=== PATIENT | female | born 1940 | race Caucasian/White ===

== ENCOUNTER → 2018-09-27 08:00 | Outpatient (CLI) | payer MEDICARE, OTHER, SELFPAY | PROVIDERS: Referring Provider Nurse Practitioner; Visit Provider Family Medicine | DX: I70.238 Atherosclerosis of native arteries of right leg with ulceration of other part of lower leg (principal); L97.811 Non-pressure chronic ulcer of other part of right lower leg limited to breakdown of skin; S41.102A Unspecified open wound of left upper arm, initial encounter; R60.0 Localized edema; M79.661 Pain in right lower leg; E11.9 Type 2 diabetes mellitus without complications | CPT/HCPCS: 11042; 11045; 36415; 80053; 83036; 85025; 85651; 86140; 87070; 87077; 87147; 87186; 87205; 99203; 99213 ==

== ENCOUNTER → 2018-09-27 09:45 | Outpatient (CLI) | payer MEDICARE, SELFPAY ==
[2018-09-27 10:38] LABS: Add Manual Diff / Slide Review NO; Basophils Absolute Auto 100 /uL (0-100); Basophils Percent Auto 0.7 % (0-2); Eosinophils Absolute Auto 400 /uL (0-450); Eosinophils Percent Auto 3.8 % (2-4); Hematocrit 34.6 % (36-46); Hemoglobin 11.2 g/dL (12.0-16.0); Lymphocytes Absolute Auto 1900 /uL (1100-4500); Lymphocytes Percent Auto 20.4 % (25-40); Mean Corpuscular HGB Conc 32.5 % (30-36); Mean Corpuscular Hemoglobin 26.8 PG (26-34); Mean Corpuscular Volume 82.5 fL (80-100); Monocytes Absolute Auto 800 /uL (0-900); Monocytes Percent Auto 8.1 % (3-14); Neutrophils Absolute Auto 6200 /uL (1500-7000); Platelet Count 330 X10^3/uL (150-400); Red Blood Cell Count 4.19 X10^6/uL (4.0-5.2); Red Cell Distribution Width 20.3 % (11.6-14.8); White Blood Cell Count 9.3 X10^3/uL (4.5-11.0)
[2018-09-27 10:41] LABS: Hemoglobin A1C% w Est Avg Glu 6.5 % (4.0-6.0)
[2018-09-27 10:46] LABS: Alanine Aminotransferase 8 IU/L (9-52); Albumin 4.1 g/dL (3.5-5.0); Alkaline Phosphatase 78 U/L (38-126); Aspartate Aminotransferase 22 IU/L (14-36); BUN Creatinine Ratio 34.4 (6-22); Bilirubin Total 0.5 mg/dL (0.2-1.3); Blood Urea Nitrogen 31 mg/dL (7-17); C-Reactive Protein Quant 3.6 mg/dL (<1.0); Calcium 10.3 mg/dL (8.4-10.2); Carbon Dioxide 28 mmol/L (22-32); Chloride 104 mmol/L (98-107); Estimated Glomerular Filt Rate > 60.0 mL/min (>60); Globulin 4.2 g/dL (1.7-4.1); Glucose 153 mg/dL (80-110); HEMOLYSIS < 15 (0-50); Potassium 4.2 mmol/L (3.4-5.1); Sodium 142 mmol/L (137-145); Total Protein 8.3 g/dL (6.3-8.2)
[2018-09-27 11:02] LABS: Erythrocyte Sedimentation Rate 79 MM/HR (0-20)
[2018-09-27 11:05] LABS: Anisocytosis 1+
== END ==
PROVIDERS: PCP Nurse Practitioner; Visit Provider Family Medicine
DX: L08.9 Local infection of the skin and subcutaneous tissue, unspecified (principal)
CPT/HCPCS: 36415; 80053; 83036; 85025; 85651; 86140

== ENCOUNTER → 2018-10-04 10:59 | Outpatient (CLI) | payer MEDICARE, OTHER, SELFPAY | PROVIDERS: PCP Nurse Practitioner; Visit Provider Family Medicine | DX: I73.9 Peripheral vascular disease, unspecified (principal); L97.811 Non-pressure chronic ulcer of other part of right lower leg limited to breakdown of skin; E11.9 Type 2 diabetes mellitus without complications | CPT/HCPCS: 11042 ==

== ENCOUNTER → 2018-10-10 13:09 | Outpatient (CLI) | payer MEDICARE, OTHER, SELFPAY | PROVIDERS: PCP Nurse Practitioner; Visit Provider Family Medicine | DX: I73.9 Peripheral vascular disease, unspecified (principal); I87.2 Venous insufficiency (chronic) (peripheral); L97.811 Non-pressure chronic ulcer of other part of right lower leg limited to breakdown of skin; M79.661 Pain in right lower leg; E11.9 Type 2 diabetes mellitus without complications | CPT/HCPCS: 97597 ==

== ENCOUNTER → 2018-10-17 12:57 | Outpatient (CLI) | payer MEDICARE, OTHER, SELFPAY ==
--- NOTE | 2018-10-17 | DI.US.S_ITS ---
PROCEDURE: US ARTERIAL DUPLEX LE RT INDICATIONS: PERIPHERAL VASCULAR DISEASE TECHNIQUE: Color and pulse Doppler interrogation was performed of the right lower extremity arterial system, with image documentation. COMPARISON: None. FINDINGS: Common femoral artery: 291 cm/sec, with monophasic flow. Deep femoral artery: 206 cm/sec, with monophasic flow. Proximal superficial femoral artery: 495 cm/sec, with monophasic flow. Mid superficial femoral artery: 90 cm/sec, with monophasic flow. Distal superficial femoral artery: 39 cm/sec, with monophasic flow. Popliteal artery: 64 cm/sec, with monophasic flow. Posterior tibial artery: 60 cm/sec, with monophasic flow. Anterior tibial artery/dorsalis pedis: 33 cm/sec, with monophasic flow. Vergara-scale imaging description: Dense atheromatous plaque is present throughout the right lower extremity arteries. IMPRESSION: 1. Monophasic waveforms throughout the right lower extremity suggesting inflow stenosis of the iliac artery. CTA with lower extremity runoff recommended to further characterize findings and evaluate for possible therapeutic interventions. 2. Markedly increased velocity within the proximal right superficial femoral artery suggesting a hemodynamically significant stenosis at the origin of the artery. These lesions may be amenable to percutaneous, transluminal angioplasty. If the patient would like to discuss possible therapeutic interventions, consider interventional radiology consultation and [facility]. Dictated by: Claudia Simpson M.D. on 10/17/2018 at 16:43 Approved by: Claudia Simpson M.D. on 10/17/2018 at 16:49
== END ==
PROVIDERS: PCP Nurse Practitioner; Visit Provider Family Medicine
DX: I73.9 Peripheral vascular disease, unspecified (principal)
CPT/HCPCS: 93926; 99213

== ENCOUNTER → 2018-10-17 14:54 | Outpatient (CLI) | payer MEDICARE, OTHER, SELFPAY | PROVIDERS: PCP Nurse Practitioner; Visit Provider Family Medicine | DX: I87.2 Venous insufficiency (chronic) (peripheral) (principal); E11.622 Type 2 diabetes mellitus with other skin ulcer; I73.9 Peripheral vascular disease, unspecified; L97.811 Non-pressure chronic ulcer of other part of right lower leg limited to breakdown of skin | CPT/HCPCS: 99213 ==

== ENCOUNTER → 2018-10-22 17:04 | Outpatient (CLI) | payer MEDICARE, OTHER, SELFPAY ==
[2018-10-22 18:18] LABS: BUN Creatinine Ratio 21.4 (6-22); Blood Urea Nitrogen 30 mg/dL (7-17); Estimated Glomerular Filt Rate 36.6 mL/min (>60)
== END ==
PROVIDERS: PCP Nurse Practitioner; Visit Provider Family Medicine
DX: I73.9 Peripheral vascular disease, unspecified (principal); L97.212 Non-pressure chronic ulcer of right calf with fat layer exposed; I87.2 Venous insufficiency (chronic) (peripheral); E11.622 Type 2 diabetes mellitus with other skin ulcer
CPT/HCPCS: 36415; 82565; 84520

== ENCOUNTER → 2018-10-23 13:16 | Outpatient (CLI) | payer MEDICARE, OTHER, SELFPAY ==
--- NOTE | 2018-10-23 13:56 | DI.CT.S_ITS ---
PROCEDURE: CT ANGIO ABDOMEN/FEMORAL INDICATIONS: abnoral arterial duplex u/s TECHNIQUE: After the administration of intravenous contrast, 2.5 mm thick sections acquired from the diaphragm to the symphysis. 10 mm maximum-intensity projection (MIP) reformats were then acquired. For radiation dose reduction, the following was used: automated exposure control. COMPARISON: [facility], US, US ARTERIAL DUPLEX LE RT, 10/17/2018, 13:50. FINDINGS: Image quality: Excellent. Aorta: Dense atheromatous calcifications are present throughout the abdominal aorta. No aneurysmal dilatation. Mesenteric arteries: A focal high-grade stenosis is present at the origin of the celiac axis. A high-grade stenosis is present at the origin of the SMA. High-grade stenoses are present bilaterally at the origins of the renal arteries. There is an accessory inferior right renal artery which appears patent. The EVANGELIST is patent. Right pelvic arteries: A moderate grade stenosis is present at the origin of the right common iliac artery. Atheromatous calcification results in mild to moderate stenosis more distally throughout the common iliac. Diffuse atheromatous calcification moderately narrows the course of the right external iliac artery. The right internal iliac artery is patent. Moderate stenosis is present throughout the right common femoral artery. Dense atheromatous calcification throughout the right superficial femoral artery results in multifocal moderate to high grade stenoses throughout. No definite SFA occlusion visualized. The right popliteal artery is patent with diffuse mural irregularity. The right anterior tibial artery and posterior tibial artery are patent to the level of the foot. The right peroneal artery is diminutive and midcalf. Left pelvic arteries: A focal mild to moderate stenosis is present at the origin of the left common iliac artery with poststenotic dilatation. No other hemodynamically significant stenosis of the left common iliac artery. The left internal iliac artery is patent. Dense atheromatous calcification is present throughout the left external iliac artery and left common femoral artery without hemodynamically significant stenosis. The left superficial femoral artery is widely patent. Scattered atheromatous calcifications result in mild to moderate focal stenoses. No high-grade stenosis present. The left popliteal artery is widely patent. The left anterior tibial, posterior tibial, and peroneal arteries are patent to the level of the foot. Extravascular soft tissues: Lung bases are clear. Heart size is normal. Liver is normal in size and enhancement. Gallbladder is surgically absent. Biliary system is non dilated. The uncinate process and head of the pancreas are grossly unremarkable. 2 complex, cystic lesions are present within the body and tail of the pancreas. The cystic lesion within the body of the pancreas measures 3.4 x 3.2 cm and the lesion within the tail the pancreas measures 9.8 x 11.1 cm in the axial plane. Soft tissue is visualized within these cystic lesions. The pancreatic duct is not distinctly visualized. The tail of the pancreas extends lateral to the larger of the 2 cystic lesions. Spleen is normal in size and enhancement. There are bilateral low-density adrenal masses, larger on the left than on the right suggesting the presence of bilateral adrenal adenomas. Kidneys are normal in size and enhancement, without hydronephrosis. Non opacified bowel loops are normal in wall thickness and caliber. There are scattered sigmoid diverticula. No evidence for diverticulitis. No free fluid or air. No retroperitoneal or mesenteric adenopathy. No ventral hernias. No suspicious bony lesions. No vertebral body compression fractures. Right hip arthroplasty is grossly intact. There appears to be a peripherally calcified right joint effusion which is incompletely characterized on this limited view of the hip. Right knee arthroplasty is grossly intact. IMPRESSION: 1. 2 complex, cystic mass lesions within the pancreas suspicious for mucinous tumors. Dedicated pancreatic mass protocol CT or pancreatic mass protocol MRI is recommended. Additionally, gastroenterology consultation recommended. 2. Diverticulosis. No acute diverticulitis. 3. Probable right hip effusion which is peripherally calcified suggesting giant cell foreign body reaction. Dedicated CT or MRI this region could be used to further characterize this finding. Orthopedic consultation recommended. 4. Moderate stenoses throughout the right iliac and common femoral arteries which likely represent inflow stenosis visualized on the arterial duplex dated 10/17/18. The stenoses are likely amenable to percutaneous angioplasty and possible stenting. 5. Diffuse moderate to high-grade stenoses throughout the right superficial femoral artery likely amenable to percutaneous angioplasty. 6. 2 vessel right lower extremity runoff. 7. Mild to moderate stenosis at the origin of left common iliac artery. 8. Diffuse atheromatous calcifications throughout the left lower extremity arteries without focal hemodynamically significant stenosis. Three-vessel left lower extremity runoff. Dictated by: Claudia Simpson M.D. on 10/23/2018 at 17:04 Approved by: Claudia Simpson M.D. on 10/23/2018 at 17:24
== END ==
PROVIDERS: PCP Nurse Practitioner; Visit Provider Family Medicine
DX: I70.203 Unspecified atherosclerosis of native arteries of extremities, bilateral legs (principal); I70.0 Atherosclerosis of aorta; E11.622 Type 2 diabetes mellitus with other skin ulcer; L97.212 Non-pressure chronic ulcer of right calf with fat layer exposed; K86.2 Cyst of pancreas; K57.90 Diverticulosis of intestine, part unspecified, without perforation or abscess without bleeding
CPT/HCPCS: 75635; 99213; 99214

== ENCOUNTER → 2018-11-01 12:46 | Outpatient (CLI) | payer MEDICARE, OTHER, SELFPAY | PROVIDERS: PCP Nurse Practitioner; Visit Provider Family Medicine | DX: I73.9 Peripheral vascular disease, unspecified (principal); L97.212 Non-pressure chronic ulcer of right calf with fat layer exposed; I87.2 Venous insufficiency (chronic) (peripheral); E11.622 Type 2 diabetes mellitus with other skin ulcer; L03.115 Cellulitis of right lower limb | CPT/HCPCS: 97597; 97598 ==

== ENCOUNTER → 2018-11-06 13:24 | Outpatient (CLI) | payer MEDICARE, OTHER, SELFPAY | PROVIDERS: PCP Nurse Practitioner; Visit Provider Family Medicine | DX: I87.2 Venous insufficiency (chronic) (peripheral) (principal); E11.622 Type 2 diabetes mellitus with other skin ulcer; L97.819 Non-pressure chronic ulcer of other part of right lower leg with unspecified severity; E11.51 Type 2 diabetes mellitus with diabetic peripheral angiopathy without gangrene | CPT/HCPCS: 99213 ==

== ENCOUNTER → 2018-11-08 12:12 | Outpatient (CLI) | payer MEDICARE, OTHER, SELFPAY | PROVIDERS: PCP Nurse Practitioner; Visit Provider Family Medicine | DX: I73.9 Peripheral vascular disease, unspecified (principal); E11.622 Type 2 diabetes mellitus with other skin ulcer; I87.2 Venous insufficiency (chronic) (peripheral); L97.219 Non-pressure chronic ulcer of right calf with unspecified severity; L03.115 Cellulitis of right lower limb; R60.0 Localized edema | CPT/HCPCS: 11042; 11045; 87070; 87075; 87077; 87186; 87205; 99214 ==

== ENCOUNTER → 2018-11-13 11:15 | Outpatient (CLI) | payer MEDICARE, OTHER, SELFPAY | PROVIDERS: PCP Nurse Practitioner; Visit Provider Family Medicine | DX: I87.2 Venous insufficiency (chronic) (peripheral) (principal); E11.622 Type 2 diabetes mellitus with other skin ulcer; L97.219 Non-pressure chronic ulcer of right calf with unspecified severity; L03.115 Cellulitis of right lower limb; I73.9 Peripheral vascular disease, unspecified; I25.10 Atherosclerotic heart disease of native coronary artery without angina pectoris | CPT/HCPCS: 11042; 11045 ==

== ENCOUNTER → 2018-11-20 11:47 | Outpatient (CLI) | payer MEDICARE, OTHER, SELFPAY | PROVIDERS: PCP Nurse Practitioner; Visit Provider Family Medicine | DX: I87.2 Venous insufficiency (chronic) (peripheral) (principal); E11.622 Type 2 diabetes mellitus with other skin ulcer; L97.212 Non-pressure chronic ulcer of right calf with fat layer exposed; L03.115 Cellulitis of right lower limb; I73.9 Peripheral vascular disease, unspecified; R60.0 Localized edema | CPT/HCPCS: 99213 ==

== ENCOUNTER → 2018-11-20 13:39 | Outpatient (CLI) | payer MEDICARE, OTHER, SELFPAY ==
[2018-11-20 14:22] LABS: BUN Creatinine Ratio 24.4 (6-22); Blood Urea Nitrogen 22 mg/dL (7-17); Calcium 10.7 mg/dL (8.4-10.2); Carbon Dioxide 25 mmol/L (22-32); Chloride 107 mmol/L (98-107); Estimated Glomerular Filt Rate > 60.0 mL/min (>60); Glucose 93 mg/dL (80-110); HEMOLYSIS < 15 (0-50); Potassium 5.1 mmol/L (3.4-5.1); Sodium 141 mmol/L (137-145)
[2018-11-20 16:48] LABS: Vitamin D 25 Hydroxy (D3) 53.2 ng/mL (30.0-100.0)
== END ==
PROVIDERS: PCP Student in an Organized Health Care Education/Training Program; Visit Provider Student in an Organized Health Care Education/Training Program
DX: Z79.1 Long term (current) use of non-steroidal anti-inflammatories (NSAID) (principal); E55.9 Vitamin D deficiency, unspecified
CPT/HCPCS: 36415; 80048; 82306

== ENCOUNTER → 2018-11-27 12:54 | Outpatient (CLI) | payer MEDICARE, OTHER, SELFPAY | PROVIDERS: PCP Student in an Organized Health Care Education/Training Program; Visit Provider Family Medicine | DX: I87.2 Venous insufficiency (chronic) (peripheral) (principal); E11.622 Type 2 diabetes mellitus with other skin ulcer; L97.811 Non-pressure chronic ulcer of other part of right lower leg limited to breakdown of skin; I73.9 Peripheral vascular disease, unspecified | CPT/HCPCS: 99213 ==

== ENCOUNTER → 2018-12-04 11:08 | Outpatient (CLI) | payer MEDICARE, OTHER, SELFPAY | PROVIDERS: PCP Student in an Organized Health Care Education/Training Program; Visit Provider Family Medicine | DX: E11.622 Type 2 diabetes mellitus with other skin ulcer (principal); I70.232 Atherosclerosis of native arteries of right leg with ulceration of calf; L97.818 Non-pressure chronic ulcer of other part of right lower leg with other specified severity | CPT/HCPCS: 99213 ==

== ENCOUNTER → 2018-12-11 14:26 | Outpatient (CLI) | payer MEDICARE, OTHER, SELFPAY | PROVIDERS: PCP Student in an Organized Health Care Education/Training Program; Visit Provider Family Medicine | DX: I70.238 Atherosclerosis of native arteries of right leg with ulceration of other part of lower leg (principal); E11.622 Type 2 diabetes mellitus with other skin ulcer; L97.212 Non-pressure chronic ulcer of right calf with fat layer exposed; R60.0 Localized edema; E11.51 Type 2 diabetes mellitus with diabetic peripheral angiopathy without gangrene; I25.10 Atherosclerotic heart disease of native coronary artery without angina pectoris | CPT/HCPCS: 97602; 99213 ==

== ENCOUNTER → 2018-12-18 13:00 | Outpatient (CLI) | payer MEDICARE, OTHER, SELFPAY | PROVIDERS: PCP Student in an Organized Health Care Education/Training Program; Visit Provider Family Medicine | DX: L97.211 Non-pressure chronic ulcer of right calf limited to breakdown of skin (principal); I70.232 Atherosclerosis of native arteries of right leg with ulceration of calf; I87.2 Venous insufficiency (chronic) (peripheral); E11.622 Type 2 diabetes mellitus with other skin ulcer | CPT/HCPCS: 11042; 11045; 99212 ==

== ENCOUNTER → 2018-12-25 13:55 | Outpatient (CLI) | payer MEDICARE, OTHER, SELFPAY | PROVIDERS: PCP Student in an Organized Health Care Education/Training Program; Visit Provider Family Medicine | DX: I87.2 Venous insufficiency (chronic) (peripheral) (principal); I70.238 Atherosclerosis of native arteries of right leg with ulceration of other part of lower leg; E11.622 Type 2 diabetes mellitus with other skin ulcer; L97.811 Non-pressure chronic ulcer of other part of right lower leg limited to breakdown of skin | CPT/HCPCS: 11042; 11045 ==

== ENCOUNTER → 2019-01-01 13:42 | Outpatient (CLI) | payer MEDICARE, OTHER, SELFPAY | PROVIDERS: PCP Student in an Organized Health Care Education/Training Program; Visit Provider Family Medicine | DX: I87.2 Venous insufficiency (chronic) (peripheral) (principal); E11.622 Type 2 diabetes mellitus with other skin ulcer; R60.0 Localized edema; L97.811 Non-pressure chronic ulcer of other part of right lower leg limited to breakdown of skin; I70.238 Atherosclerosis of native arteries of right leg with ulceration of other part of lower leg | CPT/HCPCS: 11042; 11045 ==

== ENCOUNTER → 2019-01-15 13:04 | Outpatient (CLI) | payer MEDICARE, OTHER, SELFPAY | PROVIDERS: PCP Student in an Organized Health Care Education/Training Program; Visit Provider Family Medicine | DX: I70.239 Atherosclerosis of native arteries of right leg with ulceration of unspecified site (principal); I87.2 Venous insufficiency (chronic) (peripheral); E11.622 Type 2 diabetes mellitus with other skin ulcer; L97.811 Non-pressure chronic ulcer of other part of right lower leg limited to breakdown of skin; R60.0 Localized edema | CPT/HCPCS: 97597; 97598 ==

== ENCOUNTER → 2019-01-21 14:53 | Outpatient (CLI) | payer MEDICARE, OTHER, SELFPAY | PROVIDERS: PCP Student in an Organized Health Care Education/Training Program; Visit Provider Family Medicine | DX: I70.238 Atherosclerosis of native arteries of right leg with ulceration of other part of lower leg (principal); L97.819 Non-pressure chronic ulcer of other part of right lower leg with unspecified severity | CPT/HCPCS: 99212 ==

== ENCOUNTER → 2019-01-30 13:16 | Outpatient (CLI) | payer MEDICARE, OTHER, SELFPAY | PROVIDERS: PCP Student in an Organized Health Care Education/Training Program; Visit Provider Family Medicine | DX: L97.211 Non-pressure chronic ulcer of right calf limited to breakdown of skin (principal); I70.232 Atherosclerosis of native arteries of right leg with ulceration of calf; I87.2 Venous insufficiency (chronic) (peripheral); E11.622 Type 2 diabetes mellitus with other skin ulcer; Z72.0 Tobacco use | CPT/HCPCS: 11042; 11045; 87070; 87075; 87077; 87147; 87176; 87186; 87205 ==

== ENCOUNTER 2019-02-11 16:51 | Observation (INO) | payer MEDICARE, OTHER, SELFPAY ==
[2019-02-11] VITALS (12 sets, daily range): BP systolic 106–139; BP diastolic 37–88; PULSE 63–78; RESP 16–20; TEMP 36.4–36.8; O2SAT 94–98; BMI 32.3
--- NOTE | 2019-02-11 17:41 | ED_ITS ---
HPI - Recheck/Abnormal Lab/Rx <Kristen Keagan, DO - Last Filed: 02/11/19 20:08> General Chief Complaint: Recheck/Abnormal Lab/Rx Stated Complaint: Low blood count Time Seen by Provider: 02/11/19 17:41 Source: patient and old records reviewed Mode of arrival: Ambulatory Limitations: no limitations History of Present Illness HPI narrative: The patient is a 78-year-old female with peripheral vascular disease on Brilinta presenting with abnormal blood work from her PCP. She actually had an arterial procedure done at [facility] by Interventional Radiology yesterday for a right lower leg nonhealing wound. She was noted to be anemic at that time but was discharged PCP told her to go to the emergency department today for follow-up and recheck of blood work. According daughter she has been confused and not herself. Patient states that she is dizzy lightheaded when she stands up. She is noted to have a hemoglobin of 6.3 hematocrit of 20. She has been having black tarry stools she says it's always black but had quite a blowout in the emergency department Bactrim according to the daughter who cleaned her up. Related Data Home Medications Medication Instructions Recorded Confirmed albuterol sulfate 2.5 mg INHALATION BID ml 09/23/18 11/20/18 albuterol sulfate 90 mcg/actuation 2 puff INHALATION Q4-6H PRN 09/23/18 11/20/18 aerosol inhaler amiodarone 200 mg tablet 200 mg PO BID 09/23/18 11/20/18 aspirin 81 mg tablet,delayed 81 mg PO DAILY 09/23/18 11/20/18 release blood sugar diagnostic #10 each 09/23/18 11/20/18 gabapentin 800 mg tablet 800 mg PO TID 09/23/18 11/20/18 insulin detemir U-100 100 unit/mL 20 unit SUBCUT BID 09/23/18 11/20/18 (3 mL) subcutaneous pen ticagrelor 90 mg tablet 90 mg PO BID 09/23/18 11/20/18 Previous Rx's Medication Instructions Recorded hydrocodone 10 mg-acetaminophen 1 tab PO TID #42 tab 09/27/18 325 mg tablet furosemide 40 mg tablet 40 mg PO QAM #90 tab 11/18/18 potassium chloride 20 mEq 20 meq PO DAILY #90 tab 11/18/18 tablet,extended release pen needle, diabetic 29 gauge x #100 each 11/27/18 1/2 atorvastatin 20 mg tablet 20 mg PO DAILY #90 tab 12/03/18 Allergies Allergy/AdvReac Type Severity Reaction Status Date / Time Penicillins Allergy Mild childhood Verified 11/20/18 12:41 <Nathen LevineVishnuErnieMARGARETTE mullen - Last Filed: 02/11/19 19:46> General Source: patient and family Mode of arrival: Wheelchair Limitations: no limitations Review of Systems <Kristen Boogie DO - Last Filed: 02/11/19 20:08> Review of Systems ROS Unobtainable: All systems reviewed & are unremarkable except as noted in HPI and below Constitutional Constitutional: Denies chills, Reports fatigue, Denies fever(s) and Reports weakness Eyes Eyes: Denies change in vision, Denies eye discharge, Denies irritation and Denies loss of vision ENT Ears, Nose, Mouth, and Throat: Denies change in voice, Denies neck pain and Denies sore throat Cardiovascular Cardiovascular: Denies chest pain, Denies irregular heart rhythm, Denies lightheadedness, Denies palpitations, Denies dyspnea, Denies dyspnea on exertion and Denies orthopnea Respiratory Respiratory: Denies cough, Denies dyspnea, Denies dyspnea on exertion and Denies wheezing Gastrointestinal Gastrointestinal: Reports as per HPI Genitourinary Genitourinary: Denies hematuria, Denies flank pain, Denies urinary incontinence and Denies urinary urgency Musculoskeletal Musculoskeletal: Denies neck pain Integumentary/Breasts Skin/Breast: Denies pruritus, Denies erythema, Denies rash and Denies wounds Neurologic Neurologic: Denies loss of vision and Reports weakness Endocrine Endocrine: Reports fatigue and Denies palpitations Allergic/Immunologic Allergic/Immunologic: Denies wheezing Patient History <Kristen Boogie DO - Last Filed: 02/11/19 20:08> Medical History Stopped smoking (Acute) Venous stasis ulcer (Acute) Surgical History Anesthesia (Resolved) History of cardiac catheterization (Resolved) History of knee surgery (Resolved) History of melanoma excision (Resolved) History of partial hysterectomy (Resolved) History of pneumonectomy (Resolved) History of PTCA (Resolved) History of right hip replacement (Resolved) S/P hip replacement (Resolved) Social History Smoking Status: Former smoker <Nathen JuliannaVishnuErnieMARGARETTE mullen - Last Filed: 02/11/19 19:46> Smoking Status: Former smoker alcohol intake frequency: other Substance Use Type: does not use Exam <Kristen Boogie DO - Last Filed: 02/11/19 20:08> Initial Vital Signs Initial Vital Signs: Vital Signs Temperature 97.5 F L 02/11/19 16:55 Pulse Rate 63 02/11/19 16:55 Respiratory Rate 20 02/11/19 16:55 Blood Pressure 110/47 L 02/11/19 16:55 Pulse Oximetry 98 02/11/19 16:55 GENERAL: Alert female and in no acute distress. HEENT: Head atraumatic,EOMI, pupils reactive, CARDIOVASCULAR: Regular rate and rhythm without murmurs, rubs or gallops. RESPIRATORY: Breath sounds equal bilaterally, no wheezes rales or rhonchi. ABDOMEN: Soft, nontender. Normoactive bowel sounds all 4 quadrants. No guarding or rebound. RECTAL: Hemoccult-positive, no hemorrhoids, nontender EXTREMITIES: Normal range of motion, no clubbing or edema. Neurovascularly intact NEUROLOGICAL: Alert and oriented x4.Normal gait and speech. SKIN: Warm, dry, no laceration, no petechiae, no rashes or lesions. <MARGARETTE Box - Last Filed: 02/11/19 19:46> Initial Vital Signs Initial Vital Signs: Vital Signs Temperature 97.5 F L 02/11/19 16:55 Pulse Rate 63 02/11/19 16:55 Respiratory Rate 20 02/11/19 16:55 Blood Pressure 110/47 L 02/11/19 16:55 Pulse Oximetry 98 02/11/19 16:55 Course <Kristen Boogie DO - Last Filed: 02/11/19 20:08> Orders Ordered: ED Orders 02/11/19 18:04 Complete Blood Count AUTO DIFF Stat Comprehensive Metabolic Panel Stat Partial Thromboplastin Time Stat Prothrombin Time INR Stat 02/11/19 19:28 Packed Cells Stat Type and Screen Stat 02/11/19 19:50 Consult to General Surgery Stat Discontinued Medications Morphine Sulfate (Morphine) 4 mg IV NOW ONE Stop: 02/11/19 20:01 Ondansetron HCl (Zofran) 4 mg IV NOW ONE Stop: 02/11/19 20:01 Pantoprazole Sodium (Protonix) 40 mg IV NOW ONE Stop: 02/11/19 19:41 Consultations Consultation #1: Karmen mayer, updated patient symptoms test results accepts patient. Time: 19:40 Consultation #2: Surgery , updated patient's symptoms test results does not need Protonix drip but does need Protonix clear liquids only Time: 20:00 Vital Signs Vital signs: Vital Signs - 8 hr 02/11/19 16:55 02/11/19 19:15 02/11/19 19:30 Temperature 97.5 F L Pulse Rate 63 78 Respiratory Rate 20 16 18 Blood Pressure 110/47 L Blood Pressure [Right Arm] 126/67 139/37 L Pulse Oximetry 98 <MARGARETTE Box - Last Filed: 02/11/19 19:46> Orders Ordered: ED Orders 02/11/19 18:04 Complete Blood Count AUTO DIFF Stat Comprehensive Metabolic Panel Stat Partial Thromboplastin Time Stat Prothrombin Time INR Stat 02/11/19 19:28 Packed Cells Stat Type and Screen Stat 02/11/19 19:50 Consult to General Surgery Stat Discontinued Medications Morphine Sulfate (Morphine) 4 mg IV NOW ONE Stop: 02/11/19 20:01 Ondansetron HCl (Zofran) 4 mg IV NOW ONE Stop: 02/11/19 20:01 Pantoprazole Sodium (Protonix) 40 mg IV NOW ONE Stop: 02/11/19 19:41 Vital Signs Vital signs: Vital Signs - 8 hr 02/11/19 16:55 02/11/19 19:15 02/11/19 19:30 Temperature 97.5 F L Pulse Rate 63 78 Respiratory Rate 20 16 18 Blood Pressure 110/47 L Blood Pressure [Right Arm] 126/67 139/37 L Pulse Oximetry 98 MDM - Recheck/Abnormal Lab/Rx <Kristen Boogie DO - Last Filed: 02/11/19 20:08> Lab Data Result diagrams: 02/11/19 18:04 02/11/19 18:04 Labs: Lab Results 02/11/19 02/11/19 02/11/19 Range/Units 18:04 18:04 18:04 WBC 16.2 H (4.5-11.0) X10^3/uL RBC 2.53 L (4.0-5.2) X10^6/uL Hgb 6.3 L* (12.0-16.0) g/dL Hct 20.9 L* (36-46) % MCV 82.6 (80-100) fL MCH 25.1 L (26-34) PG MCHC 30.3 (30-36) % RDW 19.5 H (11.6-14.8) % Plt Count 548 H (150-400) X10^3/uL Neut % (Auto) 76.9 H (50-75) % Lymph % (Auto) 15.6 L (25-40) % [place] % (Auto) 6.3 (3-14) % Eos % (Auto) 0.2 L (2-4) % Baso % (Auto) 1.0 (0-2) % Neut # (Auto) 40727 H (1213-6875) /uL Lymph # (Auto) 2500 (8081-1511) /uL [place] # (Auto) 1000 H (0-900) /uL Eos # (Auto) 0 (0-450) /uL Baso # (Auto) 200 H (0-100) /uL PT 13.6 H (10.1-12.7) SECONDS INR 1.2 (0.9-1.3) APTT 27 (26.4-36.2) SECONDS Sodium 140 (137-145) mmol/L Potassium 4.0 (3.4-5.1) mmol/L Chloride 106 (98-107) mmol/L Carbon Dioxide 26 (22-32) mmol/L BUN 18 H (7-17) mg/dL Creatinine 0.70 (0.52-1.04) mg/dL Estimated GFR > 60.0 (>60) mL/min BUN/Creatinine Ratio 25.7 H (6-22) Glucose 188 H (80-110) mg/dL Calcium 9.8 (8.4-10.2) mg/dL Total Bilirubin 0.3 (0.2-1.3) mg/dL AST 27 (14-36) IU/L ALT 11 (<35) IU/L Alkaline Phosphatase 114 (38-126) U/L Total Protein 7.6 (6.3-8.2) g/dL Albumin 3.6 (3.5-5.0) g/dL Globulin 4.0 (1.7-4.1) g/dL Albumin/Globulin Ratio 0.9 L (1.0-2.8) Crossmatch 02/11/19 Range/Units 19:28 WBC (4.5-11.0) X10^3/uL RBC (4.0-5.2) X10^6/uL Hgb (12.0-16.0) g/dL Hct (36-46) % MCV (80-100) fL MCH (26-34) PG MCHC (30-36) % RDW (11.6-14.8) % Plt Count (150-400) X10^3/uL Neut % (Auto) (50-75) % Lymph % (Auto) (25-40) % [place] % (Auto) (3-14) % Eos % (Auto) (2-4) % Baso % (Auto) (0-2) % Neut # (Auto) (3534-9830) /uL Lymph # (Auto) (7014-6762) /uL [place] # (Auto) (0-900) /uL Eos # (Auto) (0-450) /uL Baso # (Auto) (0-100) /uL PT (10.1-12.7) SECONDS INR (0.9-1.3) APTT (26.4-36.2) SECONDS Sodium (137-145) mmol/L Potassium (3.4-5.1) mmol/L Chloride (98-107) mmol/L Carbon Dioxide (22-32) mmol/L BUN (7-17) mg/dL Creatinine (0.52-1.04) mg/dL Estimated GFR (>60) mL/min BUN/Creatinine Ratio (6-22) Glucose (80-110) mg/dL Calcium (8.4-10.2) mg/dL Total Bilirubin (0.2-1.3) mg/dL AST (14-36) IU/L ALT (<35) IU/L Alkaline Phosphatase (38-126) U/L Total Protein (6.3-8.2) g/dL Albumin (3.5-5.0) g/dL Globulin (1.7-4.1) g/dL Albumin/Globulin Ratio (1.0-2.8) Crossmatch See Detail <MARGARETTE Box - Last Filed: 02/11/19 19:46> Lab Data Labs: Lab Results 02/11/19 02/11/19 02/11/19 Range/Units 18:04 18:04 18:04 WBC 16.2 H (4.5-11.0) X10^3/uL RBC 2.53 L (4.0-5.2) X10^6/uL Hgb 6.3 L* (12.0-16.0) g/dL Hct 20.9 L* (36-46) % MCV 82.6 (80-100) fL MCH 25.1 L (26-34) PG MCHC 30.3 (30-36) % RDW 19.5 H (11.6-14.8) % Plt Count 548 H (150-400) X10^3/uL Neut % (Auto) 76.9 H (50-75) % Lymph % (Auto) 15.6 L (25-40) % [place] % (Auto) 6.3 (3-14) % Eos % (Auto) 0.2 L (2-4) % Baso % (Auto) 1.0 (0-2) % Neut # (Auto) 24003 H (8393-6845) /uL Lymph # (Auto) 2500 (3967-7580) /uL [place] # (Auto) 1000 H (0-900) /uL Eos # (Auto) 0 (0-450) /uL Baso # (Auto) 200 H (0-100) /uL PT 13.6 H (10.1-12.7) SECONDS INR 1.2 (0.9-1.3) APTT 27 (26.4-36.2) SECONDS Sodium 140 (137-145) mmol/L Potassium 4.0 (3.4-5.1) mmol/L Chloride 106 (98-107) mmol/L Carbon Dioxide 26 (22-32) mmol/L BUN 18 H (7-17) mg/dL Creatinine 0.70 (0.52-1.04) mg/dL Estimated GFR > 60.0 (>60) mL/min BUN/Creatinine Ratio 25.7 H (6-22) Glucose 188 H (80-110) mg/dL Calcium 9.8 (8.4-10.2) mg/dL Total Bilirubin 0.3 (0.2-1.3) mg/dL AST 27 (14-36) IU/L ALT 11 (<35) IU/L Alkaline Phosphatase 114 (38-126) U/L Total Protein 7.6 (6.3-8.2) g/dL Albumin 3.6 (3.5-5.0) g/dL Globulin 4.0 (1.7-4.1) g/dL Albumin/Globulin Ratio 0.9 L (1.0-2.8) Crossmatch 02/11/19 Range/Units 19:28 WBC (4.5-11.0) X10^3/uL RBC (4.0-5.2) X10^6/uL Hgb (12.0-16.0) g/dL Hct (36-46) % MCV (80-100) fL MCH (26-34) PG MCHC (30-36) % RDW (11.6-14.8) % Plt Count (150-400) X10^3/uL Neut % (Auto) (50-75) % Lymph % (Auto) (25-40) % [place] % (Auto) (3-14) % Eos % (Auto) (2-4) % Baso % (Auto) (0-2) % Neut # (Auto) (9983-4398) /uL Lymph # (Auto) (0889-8763) /uL [place] # (Auto) (0-900) /uL Eos # (Auto) (0-450) /uL Baso # (Auto) (0-100) /uL PT (10.1-12.7) SECONDS INR (0.9-1.3) APTT (26.4-36.2) SECONDS Sodium (137-145) mmol/L Potassium (3.4-5.1) mmol/L Chloride (98-107) mmol/L Carbon Dioxide (22-32) mmol/L BUN (7-17) mg/dL Creatinine (0.52-1.04) mg/dL Estimated GFR (>60) mL/min BUN/Creatinine Ratio (6-22) Glucose (80-110) mg/dL Calcium (8.4-10.2) mg/dL Total Bilirubin (0.2-1.3) mg/dL AST (14-36) IU/L ALT (<35) IU/L Alkaline Phosphatase (38-126) U/L Total Protein (6.3-8.2) g/dL Albumin (3.5-5.0) g/dL Globulin (1.7-4.1) g/dL Albumin/Globulin Ratio (1.0-2.8) Crossmatch See Detail MDM Narrative Medical decision making narrative: I have not seen the patient and she was not evaulated by me personally. I have ordered labs after she was triaged and waiting for a bed. Discharge Plan Departure Patient Disposition: Admitted As Inpatient Clinical Impression: Acute GI bleeding Admit Date/Time: 02/11/19 19:53 Admit Provider: Luis Culver
[2019-02-11 18:25] LABS: Add Manual Diff / Slide Review NO; Basophils Absolute Auto 200 /uL (0-100); Eosinophils Absolute Auto 0 /uL (0-450); Eosinophils Percent Auto 0.2 % (2-4); Lymphocytes Absolute Auto 2500 /uL (1100-4500); Lymphocytes Percent Auto 15.6 % (25-40); Mean Corpuscular HGB Conc 30.3 % (30-36); Mean Corpuscular Hemoglobin 25.1 PG (26-34); Mean Corpuscular Volume 82.6 fL (80-100); Monocytes Absolute Auto 1000 /uL (0-900); Monocytes Percent Auto 6.3 % (3-14); Neutrophils Absolute Auto 12500 /uL (1500-7000); Neutrophils Percent Auto 76.9 % (50-75); Platelet Count 548 X10^3/uL (150-400); Red Blood Cell Count 2.53 X10^6/uL (4.0-5.2); Red Cell Distribution Width 19.5 % (11.6-14.8)
[2019-02-11 18:38] LABS: White Blood Cell Count 16.2 X10^3/uL (4.5-11.0)
[2019-02-11 18:41] LABS: Alanine Aminotransferase 11 IU/L (<35); Albumin 3.6 g/dL (3.5-5.0); Albumin Globulin Ratio 0.9 (1.0-2.8); Alkaline Phosphatase 114 U/L (38-126); Aspartate Aminotransferase 27 IU/L (14-36); BUN Creatinine Ratio 25.7 (6-22); Bilirubin Total 0.3 mg/dL (0.2-1.3); Blood Urea Nitrogen 18 mg/dL (7-17); Calcium 9.8 mg/dL (8.4-10.2); Carbon Dioxide 26 mmol/L (22-32); Chloride 106 mmol/L (98-107); Estimated Glomerular Filt Rate > 60.0 mL/min (>60); Glucose 188 mg/dL (80-110); HEMOLYSIS < 15 (0-50); Hematocrit 20.9 % (36-46); Hemoglobin 6.3 g/dL (12.0-16.0); Sodium 140 mmol/L (137-145); Total Protein 7.6 g/dL (6.3-8.2)
[2019-02-11 18:56] LABS: INR 1.2 (0.9-1.3); Prothrombin Time 13.6 SECONDS (10.1-12.7)
[2019-02-11 18:58] LABS: PTT Partial Thromboplastin Tim 27 SECONDS (26.4-36.2)
[2019-02-11] MEDS: PANTOPRAZOLE 40 MG VIAL IV (20:04)
[2019-02-11] MEDS: ONDANSETRON 4 MG/2 ML INJ IV (20:04)
[2019-02-11] MEDS: MORPHINE 4 MG/ML INJ IV (20:04)
--- NOTE | 2019-02-11 21:42 | ED.RECABL ---
HPI - Recheck/Abnormal Lab/Rx General Chief Complaint: Recheck/Abnormal Lab/Rx Stated Complaint: Low blood count Time Seen by Provider: 02/11/19 18:38 Source: patient and family Mode of arrival: Wheelchair Limitations: no limitations History of Present Illness HPI narrative: Patient 78-year-old female with history of peripheral vascular disease on Bril[place] who presents with abnormal blood work. She had a procedure done by Interventional Radiology at [facility] yesterday for nonhealing right anterior wound, she supposedly was supposed to stay overnight but wanted to go home. She had blood work done which showed she was anemic PCP was contacted and she was instructed to come to the emergency department. She has been feeling dizzy and lightheaded over the last few days daughter states that she is more confused than normal. No fevers or chills. She has been having black stool it is unclear how long she has been having it for however she did have a large blowout according to the daughter who cleaned her up in the emergency department. Her hemoglobin is found to be 6.3 with a hematocrit of 20.9. She denies any nausea vomiting or abdominal pain MD complaint: abnormal lab Related Data Home Medications Medication Instructions Recorded Confirmed aspirin 81 mg tablet,delayed 81 mg PO DAILY 09/23/18 02/11/19 release blood sugar diagnostic #10 each 09/23/18 11/20/18 gabapentin 800 mg tablet 800 mg PO TID 09/23/18 02/11/19 insulin detemir U-100 100 unit/mL 20 unit SUBCUT BID 09/23/18 02/11/19 (3 mL) subcutaneous pen ticagrelor 90 mg tablet 90 mg PO BID 09/23/18 02/11/19 atorvastatin 20 mg PO BEDTIME 02/11/19 02/11/19 Previous Rx's Medication Instructions Recorded hydrocodone 10 mg-acetaminophen 1 tab PO TID #42 tab 09/27/18 325 mg tablet furosemide 40 mg tablet 40 mg PO QAM #90 tab 11/18/18 potassium chloride 20 mEq 20 meq PO DAILY #90 tab 11/18/18 tablet,extended release pen needle, diabetic 29 gauge x #100 each 11/27/18 1/2 Allergies Allergy/AdvReac Type Severity Reaction Status Date / Time Penicillins Allergy Mild childhood Verified 11/20/18 12:41 Review of Systems Review of Systems ROS Unobtainable: All systems reviewed & are unremarkable except as noted in HPI and below Constitutional Constitutional: Denies poor appetite and Reports weakness Eyes Eyes: Denies loss of vision ENT Ears, Nose, Mouth, and Throat: Denies change in voice, Denies neck pain and Denies sore throat Cardiovascular Cardiovascular: Denies chest pain, Denies irregular heart rhythm, Denies lightheadedness, Denies palpitations, Denies dyspnea, Denies dyspnea on exertion and Denies orthopnea Respiratory Respiratory: Denies cough, Denies dyspnea, Denies dyspnea on exertion and Denies wheezing Gastrointestinal Gastrointestinal: Reports as per HPI Musculoskeletal Musculoskeletal: Denies neck pain Integumentary/Breasts Skin/Breast: Reports as per HPI Neurologic Neurologic: Denies loss of vision and Reports weakness Endocrine Endocrine: Denies palpitations Allergic/Immunologic Allergic/Immunologic: Denies wheezing Patient History Medical History Stopped smoking (Acute) Venous stasis ulcer (Acute) Surgical History Anesthesia (Resolved) History of cardiac catheterization (Resolved) History of knee surgery (Resolved) History of melanoma excision (Resolved) History of partial hysterectomy (Resolved) History of pneumonectomy (Resolved) History of PTCA (Resolved) History of right hip replacement (Resolved) S/P hip replacement (Resolved) Social History household members: children Smoking Status: Former smoker Smoking Status: Former smoker alcohol intake frequency: other Substance Use Type: does not use Exam Initial Vital Signs Initial Vital Signs: Vital Signs Temperature 97.5 F L 02/11/19 16:55 Pulse Rate 63 02/11/19 16:55 Respiratory Rate 20 02/11/19 16:55 Blood Pressure 110/47 L 02/11/19 16:55 Pulse Oximetry 98 02/11/19 16:55 GENERAL: Alert well-appearing elderly female HEENT: Head atraumatic,EOMI, pupils reactive CARDIOVASCULAR: Regular rate and rhythm without murmurs, rubs or gallops. RESPIRATORY: Breath sounds equal bilaterally, no wheezes rales or rhonchi. ABDOMEN: Soft, nontender. Normoactive bowel sounds all 4 quadrants. No guarding or rebound. EXTREMITIES: Normal range of motion, no clubbing or edema. Neurovascularly intact. Right foot is warm X has been previously marked is where pulse is, however it is hard to palpate NEUROLOGICAL: Alert and oriented x4.Normal gait and speech. Cranial nerves II through XII grossly intact. SKIN: Anterior lower right michaels wound no gross drainage no surrounding erythema. Site of left groin were procedure was done is clean and dry there's no contusion there's no erythema there's a small incision which appears well Course Orders Ordered: ED Orders 02/11/19 18:04 Complete Blood Count AUTO DIFF Stat Comprehensive Metabolic Panel Stat Partial Thromboplastin Time Stat Prothrombin Time INR Stat 02/11/19 19:28 Packed Cells Stat Type and Screen Stat 02/11/19 19:50 Consult to General Surgery Stat Acetaminophen (Tylenol) 975 mg PO Q8H PRN PRN Reason: Fever/Mild Pain (1-3) Atorvastatin Calcium (Lipitor) 20 mg PO BEDTIME ANGE Dextrose (D50w) 25 gm IV PRN PRN; Protocol PRN Reason: Hypoglycemia Gabapentin (Neurontin) 800 mg PO TID ANGE Sodium Chloride (Normal Saline 0.9%) 1,000 mls @ 75 mls/hr IV CONT ANGE Insulin Aspart (Novolog Flexpen) 0 unit SUBCUT ACHS ANGE; Protocol Insulin Detemir (Levemir Flextouch) 20 unit SUBCUT BID ANGE Naloxone HCl (Narcan) 0.2 mg IV Q2MIN PRN PRN Reason: Opiate Reversal Ondansetron HCl (Zofran) 4 mg IV Q8HR PRN PRN Reason: Nausea And Vomiting Oxycodone HCl (Percolone) 10 mg PO Q8H PRN PRN Reason: Pain, Severe (7-10) Pantoprazole Sodium (Protonix) 40 mg PO BID ANGE Discontinued Medications Morphine Sulfate (Morphine) 4 mg IV NOW ONE Stop: 02/11/19 20:01 Last Admin: 02/11/19 20:04 Dose: 4 mg Documented by: FABIAN Ondansetron HCl (Zofran) 4 mg IV NOW ONE Stop: 02/11/19 20:01 Last Admin: 02/11/19 20:04 Dose: 4 mg Documented by: FABIAN Pantoprazole Sodium (Protonix) 40 mg IV NOW ONE Stop: 02/11/19 19:41 Last Admin: 02/11/19 20:04 Dose: 40 mg Documented by: FABIAN Pantoprazole Sodium (Protonix) 40 mg PO BID ANGE Consultations Consultation #1: Palomo PFEIFFER, hospitalist updated patient's symptoms test results in ED taking evaluation Time: 19:50 Consultation #2: Dr. Huber roca updated on patient's symptoms test results agrees with consultation. Recommend clear liquids and Protonix, along with holding for length Time: 20:00 Vital Signs Vital signs: Vital Signs - 8 hr 02/11/19 16:55 02/11/19 19:15 02/11/19 19:30 Temperature 97.5 F L Pulse Rate 63 78 Respiratory Rate 20 16 18 Blood Pressure 110/47 L Blood Pressure [Right Arm] 126/67 139/37 L Pulse Oximetry 98 MDM - Recheck/Abnormal Lab/Rx Lab Data Attestation: I reviewed the patient's lab results. Result diagrams: 02/11/19 18:04 02/11/19 18:04 Labs: Lab Results 02/11/19 02/11/19 02/11/19 Range/Units 18:04 18:04 18:04 WBC 16.2 H (4.5-11.0) X10^3/uL RBC 2.53 L (4.0-5.2) X10^6/uL Hgb 6.3 L* (12.0-16.0) g/dL Hct 20.9 L* (36-46) % MCV 82.6 (80-100) fL MCH 25.1 L (26-34) PG MCHC 30.3 (30-36) % RDW 19.5 H (11.6-14.8) % Plt Count 548 H (150-400) X10^3/uL Neut % (Auto) 76.9 H (50-75) % Lymph % (Auto) 15.6 L (25-40) % [place] % (Auto) 6.3 (3-14) % Eos % (Auto) 0.2 L (2-4) % Baso % (Auto) 1.0 (0-2) % Neut # (Auto) 87148 H (4305-4464) /uL Lymph # (Auto) 2500 (6119-7221) /uL [place] # (Auto) 1000 H (0-900) /uL Eos # (Auto) 0 (0-450) /uL Baso # (Auto) 200 H (0-100) /uL PT 13.6 H (10.1-12.7) SECONDS INR 1.2 (0.9-1.3) APTT 27 (26.4-36.2) SECONDS Sodium 140 (137-145) mmol/L Potassium 4.0 (3.4-5.1) mmol/L Chloride 106 (98-107) mmol/L Carbon Dioxide 26 (22-32) mmol/L BUN 18 H (7-17) mg/dL Creatinine 0.70 (0.52-1.04) mg/dL Estimated GFR > 60.0 (>60) mL/min BUN/Creatinine Ratio 25.7 H (6-22) Glucose 188 H (80-110) mg/dL Calcium 9.8 (8.4-10.2) mg/dL Total Bilirubin 0.3 (0.2-1.3) mg/dL AST 27 (14-36) IU/L ALT 11 (<35) IU/L Alkaline Phosphatase 114 (38-126) U/L Total Protein 7.6 (6.3-8.2) g/dL Albumin 3.6 (3.5-5.0) g/dL Globulin 4.0 (1.7-4.1) g/dL Albumin/Globulin Ratio 0.9 L (1.0-2.8) Blood Type Antibody Screen Crossmatch 02/11/19 Range/Units 19:28 WBC (4.5-11.0) X10^3/uL RBC (4.0-5.2) X10^6/uL Hgb (12.0-16.0) g/dL Hct (36-46) % MCV (80-100) fL MCH (26-34) PG MCHC (30-36) % RDW (11.6-14.8) % Plt Count (150-400) X10^3/uL Neut % (Auto) (50-75) % Lymph % (Auto) (25-40) % [place] % (Auto) (3-14) % Eos % (Auto) (2-4) % Baso % (Auto) (0-2) % Neut # (Auto) (7015-4744) /uL Lymph # (Auto) (0184-9077) /uL [place] # (Auto) (0-900) /uL Eos # (Auto) (0-450) /uL Baso # (Auto) (0-100) /uL PT (10.1-12.7) SECONDS INR (0.9-1.3) APTT (26.4-36.2) SECONDS Sodium (137-145) mmol/L Potassium (3.4-5.1) mmol/L Chloride (98-107) mmol/L Carbon Dioxide (22-32) mmol/L BUN (7-17) mg/dL Creatinine (0.52-1.04) mg/dL Estimated GFR (>60) mL/min BUN/Creatinine Ratio (6-22) Glucose (80-110) mg/dL Calcium (8.4-10.2) mg/dL Total Bilirubin (0.2-1.3) mg/dL AST (14-36) IU/L ALT (<35) IU/L Alkaline Phosphatase (38-126) U/L Total Protein (6.3-8.2) g/dL Albumin (3.5-5.0) g/dL Globulin (1.7-4.1) g/dL Albumin/Globulin Ratio (1.0-2.8) Blood Type A Positive Antibody Screen Negative Crossmatch See Detail MDM Narrative Medical decision making narrative: Patient is hemodynamically stable. Hemoglobin is quite low site of procedure on the left groin actually appears clear there is no contusion, this is likely a GI bleed. Still waiting for [facility] records. Packed red blood cells have been ordered she has been given a dose of Protonix. Discharge Plan Departure Patient Disposition: Admitted As Inpatient Clinical Impression: Acute GI bleeding Discharge Date/Time: 02/11/19 20:40 Admit Date/Time: 02/11/19 19:53 Admit Provider: Luis Culver
[2019-02-11 21:56] LABS: Magnesium 2.1 mg/dL (1.6-2.3)
--- NOTE | 2019-02-11 22:09 | PC.NURSE ---
pt arrived at 2044, 94%RA. A&Ox3. pt is pale. LS: wheezy. denied any n/v. pt ate half a sandwich. pt tolerating blood transfusion. SBA. pt has a wound on her RLE covered w/guaze. pt refused wound assessment on RLE. oriented pt to the room. NPO at midnight. call light in reach. bed alarm active.
[2019-02-11] MEDS: SODIUM CHLORIDE 0.9% 1,000 ML 75 ML IV (22:17)
[2019-02-11] MEDS: GABAPENTIN 400 MG CAPSULE 800 MG PO (22:18)
[2019-02-11] MEDS: ATORVASTATIN 20 MG TABLET PO (22:18)
[2019-02-11] MEDS: OXYCODONE IR 10 MG TABLET PO (22:55)
[2019-02-12] VITALS (7 sets, daily range): BP systolic 104–124; BP diastolic 42–50; PULSE 50–67; RESP 18–20; TEMP 36–37.1; O2SAT 90–97
--- NOTE | 2019-02-12 02:44 | PC.NURSE ---
Addendum entered by Svetlana Hill R.N. 02/12/19 06:10: Patient's output for shift was 150ml, bladder scanned patient for a estimated volume of 19ml. Notified GAS CHARGER of output, reports not concerned and no new orders at this time. Notified RT for EKG order to be performed as soon as available. Patient stable at this time. Original Note: Shift note: Received pt from evening shift. Patient finishing first unit of blood at start of shift. 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 VSS, on room air, expiratory wheeze throughout lung nuñez, HR is irregular on auscultation and on telemetry. Patient finished second unit of blood at 0210, lab notified of H/H order and requested morning labs be drawn at the same time per MARGARETTE Culver's verbal order to this RN. Patient c/o chronic leg pain resulting from ulcer on leg, unable to assess as patient will not allow removal of dressing but is C/D/I. Patient is a high fall risk due to weakness and impulsivity on evening shift, is in a view room, bed alarm on and functioning, call light in reach. Will continue to monitor.
[2019-02-12 03:20] LABS: Add Manual Diff / Slide Review NO; Basophils Absolute Auto 100 /uL (0-100); Basophils Percent Auto 0.6 % (0-2); Eosinophils Absolute Auto 200 /uL (0-450); Eosinophils Percent Auto 1.5 % (2-4); Hematocrit 25.3 % (36-46); Hemoglobin 8.3 g/dL (12.0-16.0); Lymphocytes Absolute Auto 2700 /uL (1100-4500); Mean Corpuscular HGB Conc 32.7 % (30-36); Mean Corpuscular Hemoglobin 26.9 PG (26-34); Mean Corpuscular Volume 82.4 fL (80-100); Monocytes Absolute Auto 1400 /uL (0-900); Monocytes Percent Auto 9.8 % (3-14); Neutrophils Absolute Auto 9700 /uL (1500-7000); Neutrophils Percent Auto 69.1 % (50-75); Platelet Count 416 X10^3/uL (150-400); Red Blood Cell Count 3.07 X10^6/uL (4.0-5.2); Red Cell Distribution Width 17.2 % (11.6-14.8)
[2019-02-12 03:26] LABS: INR 1.1 (0.9-1.3); Prothrombin Time 13.1 SECONDS (10.1-12.7)
[2019-02-12 03:30] LABS: BUN Creatinine Ratio 21.4 (6-22); Blood Urea Nitrogen 15 mg/dL (7-17); Calcium 9.3 mg/dL (8.4-10.2); Carbon Dioxide 28 mmol/L (22-32); Chloride 110 mmol/L (98-107); Estimated Glomerular Filt Rate > 60.0 mL/min (>60); Glucose 148 mg/dL (80-110); HEMOLYSIS < 15 (0-50); Potassium 3.6 mmol/L (3.4-5.1); Sodium 143 mmol/L (137-145)
--- NOTE | 2019-02-12 05:39 | P.HP_ITS ---
History of Present Illness History of Present Illness Date Patient Seen: 02/11/19 Time Patient Seen: 22:15 Chief complaint: Low blood count Narrative: Miss Drea Mccain is a 78-year-old female with a history significant for insulin-dependent diabetes, myocardial infarction with stenting to her LAD, atrial fibrillation, CHF, COPD, sleep apnea, acquired right footdrop as sequelae of right hip replacement, chronic back pain, diverticulosis and history of a nonhealing venous stasis ulcer over right lower extremity who presents to the ER today sent in by her primary care provider related to severe anemia. The patient contact her primary care related to being dizziness and lightheaded with confusion. The patient was sent in by her PCP following lab work showing severe anemia. The patient is status post vascular procedure by Interventional Radiology at [facility] to revascularize the right leg for nonhealing wound. The patient was started on tigagrelor following the procedure. The patient reports having dark stools for at least 1 week. She reports stools of formed but is passing foul-smelling gas. She reports that her stools have lightening color and are normal appearing. The patient reports no nasal congestion or sore throat. She has had no chest pain and denies palpitations. She reports no shortness of breath and no exertional dyspnea. She has had no abdominal pain and denies nausea vomiting. She reports no urin nohemi symptoms or hematuria. Patient does have chronic pain and had been prescribed meloxicam she states she does not take instead she takes 3 Aleve twice daily and takes gabapentin 3 times daily. She reports mild decrease in sensation in her feet related to diabetes. Upon arrival to the ER the patient is afebrile with a temperature 97.5?, heart rate of 63, blood pressure 110/47, respiratory rate of 20 saturating 98% on room air. No imaging was obtained in the ER, the patient's atrial fibrillation on telemetry. On laboratory analysis the patient has elevated white count of 16.2, hemoglobin of 6.3, hematocrit of 20.9 with platelets of 540. Her electrolytes are within normal limits she has a BUN of 18 and creatinine of 0.7. Her nonfasting glucose is 188. She has normal liver functions with a BUN of 0.3, AST of 27 ALT of 11 and alkaline phosphatase of 114. She has a PT of 13.6 with an I NR 1.2 and a PTT of 27. A stat type and screen is ordered. Dr. Ngo, general surgery has agreed to consult and evaluate the patient. The patient is admitted to the medicine service for severe anemia secondary to gastrointestinal bleed. Patient History Medical History (Updated 02/12/19 @ 06:13 by MARGARETTE Muniz) Adrenal cortical adenoma (Resolved) Atrial fibrillation (Inactive) Carotid atherosclerosis (Inactive) CHF (congestive heart failure) (Inactive) Coronary artery sclerosis (Inactive ~07/2018) Cyst of kidney, acquired (Resolved) Cystocele (Inactive) Diverticular disease of colon (Inactive) Dyslipidemia (Inactive) History of heart attack (Inactive ~2018) Insulin dependent diabetes mellitus (Inactive ~1998) Lung cancer (Resolved ~2007) Mitral regurgitation (Inactive) Non-alcoholic fatty liver disease (Inactive) Opiate dependence, continuous (Inactive) Pancreatic mass (Inactive) Pulmonary emphysema (Inactive) PVD (peripheral vascular disease) (Inactive) Right foot drop (Inactive Unknown) Sleep apnea (Inactive) Spinal stenosis of lumbar region (Inactive) Type 2 diabetes mellitus (Inactive) Venous stasis ulcer (Acute) Surgical History (Updated 02/12/19 @ 06:06 by MARGARETTE Muniz) Anesthesia (Resolved) History of cardiac catheterization (Resolved) History of hysterectomy (Resolved) History of knee replacement (Resolved) History of knee surgery (Resolved) History of melanoma excision (Resolved) History of partial hysterectomy (Resolved) History of pneumonectomy (Resolved) History of PTCA (Resolved) History of right hip replacement (Resolved) S/P hip replacement (Resolved) Family & Social History Family History (Updated 02/12/19 @ 06:14 by MARGARETTE Muniz) Father No known health problems Mother Cancer Social History: household members children Prior Living Arrangements House Safety & Behavioral: Feels Safe in Current Yes Environment Suicidal Ideation Description None Suicide Plan Description No Plan Tobacco & Substance use: Smoking Status Former smoker alcohol intake frequency other Substance Use Type does not use Comment: The patient lives in assisted living apartment by herself having been recently as of March of this year. Patient is unsure family history and is unaware of any medical problems for her father. Her mother had brain cancer and her sibling has ?nothing major? period she reports no history of heart disease, hypertension or diabetes in the family. Smoking: The patient states she has quit multiple times and currently smokes bronch at 1/2 pack per day. Alcohol: Patient colleges very rare alcohol consumption. Substance use: The patient has tried cannabis but didn't like the effects. Advanced directives: The patient states her desire to be FULL CODE. She designates her daughter to be surrogate decision makers. Meds Home Medications and Allergies Home Medications Medication Instructions Recorded Confirmed Type aspirin 81 mg tablet,delayed 81 mg PO DAILY 09/23/18 02/11/19 History release blood sugar diagnostic #10 each 09/23/18 11/20/18 History gabapentin 800 mg tablet 800 mg PO TID 09/23/18 02/11/19 History insulin detemir U-100 100 unit/mL 20 unit SUBCUT BID 09/23/18 02/11/19 History (3 mL) subcutaneous pen ticagrelor 90 mg tablet 90 mg PO BID 09/23/18 02/11/19 History hydrocodone 10 mg-acetaminophen 1 tab PO TID #42 tab 09/27/18 02/11/19 Rx 325 mg tablet furosemide 40 mg tablet 40 mg PO QAM #90 tab 11/18/18 02/11/19 Rx potassium chloride 20 mEq 20 meq PO DAILY #90 tab 11/18/18 02/11/19 Rx tablet,extended release pen needle, diabetic 29 gauge x #100 each 11/27/18 Rx 1/2 atorvastatin 20 mg PO BEDTIME 02/11/19 02/11/19 History Allergies Allergy/AdvReac Type Severity Reaction Status Date / Time Penicillins Allergy Mild childhood Verified 11/20/18 12:41 Review of Systems Review of Systems Narrative: All systems are reviewed and unremarkable except as noted in the HPI above. Exam Vital Signs (past 8 hours): - 02/11/19 23:28 02/11/19 23:33 02/11/19 23:39 Temperature 98.2 F 98.2 F 98.2 F Pulse Rate 74 73 74 Respiratory Rate 18 19 18 Blood Pressure 107/37 L 107/37 L 107/37 L Pulse Oximetry 94 02/11/19 23:53 02/11/19 23:54 02/12/19 02:10 Temperature 98 F 98.4 F Pulse Rate 72 67 Respiratory Rate 18 18 Blood Pressure 106/41 L 104/42 L Pulse Oximetry 98 02/12/19 03:18 02/12/19 03:19 Temperature 98.7 F Pulse Rate 66 Respiratory Rate 19 Blood Pressure 107/47 L Pulse Oximetry 94 94 Oxygen Delivery Method Room Air Oxygen Flow Rate 0 Narrative Exam Narrative: GENERAL APPEARANCE: well developed, well nourished, in no acute distress. HEENT: Normocephalic, PERRLA, conjunctiva clear, EOMs intact without nystagmus, no rhinorrhea, mucous membranes are moist and pink without lesions or exudate. NECK/THYROID: neck supple, no JVD, no carotid bruit, no thyromegaly, trachea midline. LYMPH NODES: no cervical or supraclavicular lymphadenopathy. SKIN: [place], warm and dry, clean appearing wound right anterior lower leg approximately 6 cm by 3 cm. HEART: Irregularly irregular rhythm, S1-S2, 1/6 murmur, no rubs or gallops, brisk capillary refill, trace pedal edema LUNGS: clear to auscultation bilaterally, no coarseness crackles or wheezing, no cough present CHEST: Symmetrical movement, no accessory muscle use, good tidal volume. ABDOMEN: Soft, round, dull to percussion, nontender to palpation, no organomegaly, active bowel tones. EXTREMITIES: moves all extremities, strength is 4-5/5 and symmetrical, hypersensitive skin lower extremities. NEUROLOGIC: AAO x4, cranial nerves II-XII grossly intact, sensation intact to li ght touch, hearing grossly normal to speech. PSYCH: Cooperative, linear thought process, appropriate with stable behavior Objective Labs Result Diagrams: 02/12/19 03:10 02/12/19 03:10 Labs: Laboratory Results - last 24 hr 02/11/19 02/11/19 02/11/19 18:04 18:04 18:04 WBC 16.2 H RBC 2.53 L Hgb 6.3 L* Hct 20.9 L* MCV 82.6 MCH 25.1 L MCHC 30.3 RDW 19.5 H Plt Count 548 H Neut % (Auto) 76.9 H Lymph % (Auto) 15.6 L [place] % (Auto) 6.3 Eos % (Auto) 0.2 L Baso % (Auto) 1.0 Neut # (Auto) 04329 H Lymph # (Auto) 2500 [place] # (Auto) 1000 H Eos # (Auto) 0 Baso # (Auto) 200 H PT 13.6 H INR 1.2 APTT 27 Sodium 140 Potassium 4.0 Chloride 106 Carbon Dioxide 26 BUN 18 H Creatinine 0.70 Estimated GFR > 60.0 BUN/Creatinine Ratio 25.7 H Glucose 188 H Calcium 9.8 Magnesium Total Bilirubin 0.3 AST 27 ALT 11 Alkaline Phosphatase 114 Total Protein 7.6 Albumin 3.6 Globulin 4.0 Albumin/Globulin Ratio 0.9 L Blood Type Antibody Screen Crossmatch 02/11/19 02/11/19 02/12/19 18:04 19:28 03:10 WBC 14.0 H RBC 3.07 L Hgb 8.3 L Hct 25.3 L MCV 82.4 MCH 26.9 MCHC 32.7 RDW 17.2 H Plt Count 416 H Neut % (Auto) 69.1 Lymph % (Auto) 19.0 L [place] % (Auto) 9.8 Eos % (Auto) 1.5 L Baso % (Auto) 0.6 Neut # (Auto) 9700 H Lymph # (Auto) 2700 [place] # (Auto) 1400 H Eos # (Auto) 200 Baso # (Auto) 100 PT INR APTT Sodium Potassium Chloride Carbon Dioxide BUN Creatinine Estimated GFR BUN/Creatinine Ratio Glucose Calcium Magnesium 2.1 Total Bilirubin AST ALT Alkaline Phosphatase Total Protein Albumin Globulin Albumin/Globulin Ratio Blood Type A Positive Antibody Screen Negative Crossmatch See Detail 02/12/19 02/12/19 03:10 03:10 WBC RBC Hgb Hct MCV MCH MCHC RDW Plt Count Neut % (Auto) Lymph % (Auto) [place] % (Auto) Eos % (Auto) Baso % (Auto) Neut # (Auto) Lymph # (Auto) [place] # (Auto) Eos # (Auto) Baso # (Auto) PT 13.1 H INR 1.1 APTT Sodium 143 Potassium 3.6 Chloride 110 H Carbon Dioxide 28 BUN 15 Creatinine 0.70 Estimated GFR > 60.0 BUN/Creatinine Ratio 21.4 Glucose 148 H Calcium 9.3 Magnesium Total Bilirubin AST ALT Alkaline Phosphatase Total Protein Albumin Globulin Albumin/Globulin Ratio Blood Type Antibody Screen Crossmatch Assessment & Plan Assessment & Plan narrative: This is a 78-year-old female patient who was recently relocated from [place] to live with family in [place]. Patient has a complex medical history and has recently undergone interventional radiology procedure for revascularization of the right leg for which she was taking ticagrelor and has also been taking above the recommended dose of Aleve 3 tablets twice daily for her chronic pain. 1. Acute GI bleed with severe anemia, present on admission, active. -patient sent to the ER by her primary care provider related to outpatient labs finding severe anemia. -hemoglobin upon arrival at 6.3 with a hemoglobin of 20.0. Patient with complaints of dizziness and lightheadedness and confusion. Patient denies chest pain or shortness of breath. -patient endorses black stools for 1 week without complaints of abdominal pain or cramping in the setting of diverticulosis and overuse of NSAIDs. -patient reports bowel movements are formed and have become normal in color.. -patient has been typed and crossed, will transfuse 2 units packed RBCs. -will check H&H 1 hour post transfusion. -ticagrelor and aspirin are held in the setting of acute bleed. -Dr. Ngo, general surgery is consulting and we appreciate her evaluation and recommendations. -patient is NPO past midnight, will re-evaluate following surgical evaluation. 2. Atrial fibrillation, unknown chronicity, present on admission, active. -patient's atrial fibrillation with controlled rate of 63 on telemetry. -will obtain 12 lead EKG to assess for ischemic changes related to severe anemia. -patient is on no rate control medication. Continue to monitor on telemetry. 3. Coronary artery disease, chronic, stable -patient without complaints of chest pain or shortness of breath in the setting of severe anemia. -patient is diabetic therefore will obtain troponin and will evaluate 12 lead EKG for ischemic changes. -aspirin will be on hold pending surgical evaluation. 4. Congestive heart failure, unknown type, active. -patient being transfused 2 units of blood, will evaluate fluid loading and assess for pulmonary congestion. -continue Lasix 40 mg daily. -will follow chemistries and treat electrolytes as indicated. 5. Diabetes type 2, insulin dependent, chronic, present on admission, stable. -blood sugar on admission is 188. -patient with mild neuropathy bilateral feet, retains good renal function with a creatinine 0.7, no complaints of retinopathy. -fingersticks AC and HS. -continue patient's detemir insulin 20 units twice daily. -ordered correctional insulin low scale. 6. Chronic back pain, present on admission, stable. -patient with spinal stenosis with resultant leg pains -will continue home regimen of gabapentin 800 mg 3 times daily. -ordered Tylenol 975 mg t.i.d. and oxycodone 5 mg every 6 hours as needed for pain. -PT and OT to evaluate and treat. 7. Hyperlipidemia, chronic, stable. -continue home regimen of atorvastatin 20 mg at bedtime 8. Nonhealing wound right lower extremity, chronic, active -clean wound right lower leg being care for by Wound Care. -dressing recently changed, will keep dressing intact and evaluate need for wound care follow-up in house. 9. COPD, current smoker, present on admission, active. -patient presently smokes 1/2 pack per day. -no complaints of shortness of breath or wheezing. -Nicoderm patch 7 mg topically daily. VTE prophylaxis: SCDs bilaterally, chemical prophylaxis contraindicated with active GI bleed. Diet: Medium carbohydrate, heart healthy, NPO midnight. IV fluid: Normal saline 75 cc/hour The patient is admitted to the hospital related to severity symptoms and risk for complications and adverse events. She is admitted as an outpatient with expected length of stay to be less than 2 midnights. Scores GCS Dutch coma scale eye opening: Spontaneous [place] coma scale verbal response: Orientated [place] coma scale motor response: Obey commands [place] coma scale total score: 15
[2019-02-12 06:20] LABS: Troponin I < 0.012 ng/mL (0.01-0.034)
[2019-02-12 06:58] LABS: Hemoglobin A1C% w Est Avg Glu 6.2 % (4.0-6.0)
[2019-02-12] MEDS: POTASSIUM CHLORIDE 40 MEQ in SODIUM CHLORIDE 0.9% 500 ML 130 ML IV (08:04)
[2019-02-12] MEDS: GABAPENTIN 400 MG CAPSULE 800 MG PO (09:45)
[2019-02-12] MEDS: PANTOPRAZOLE 20 MG TABLET 40 MG PO (09:45)
--- NOTE | 2019-02-12 09:49 | P.CONS_ITS ---
History of Present Illness Consult details Date Patient Seen: 02/12/19 Time Patient Seen: 09:49 Chief complaint: Low blood count Reason for consult: GI bleed Narrative: This is a 78yo woman with h/o DM2, VT with stenting to her LAD in March 2018, atrial fibrillation, CHF, COPD, [place], peptic ulcers, chronic NSAID use, anticoagulation on Brilinta since her LAD stent, diverticulosis, nonhealing right michaels ulcer with revascularization procedure to the right lower extremity on 02/09. She was feeling especially weak and sick yesterday, had labs done by her PCP, and was then sent to the ER for anemia. The patient says she has had dark stool for about a year, and considers this her norm. Her stools are sometimes loose and sometimes hard and firm. She came into the ER and was found to have a hgb of 6.3. She was transfused 2 units of blood, and hgb is 8.3 this morning. She says she feels much better now and has not passed any stools since coming into the hospital. She says that she last had a colonoscopy 3-4 years ago and a large polyp was found and removed. She says she had an EGD just recently, by a GI doctor in [place], for cysts on her pancreas. She says that on the EGD ulcers were seen, but he was not able to do a good exam because she had eaten that morning. She continues to take 2-3 Aleve per day. She does not take any bowel regimen, or fiber supplement. She has been off the Brilinta for over a week for her procedure on 02/09, which she says was done by an interventional radiolgist at [facility] to open the artery to her right leg in order to help heal the ulcer on her michaels. She has not restarted the Brilinta since 1 week before that procedure. ROS: The patient denies shortness of breath, chest pain, malaise, cold symptoms, headaches, nausea, vomiting, dysuria. Thirteen system review is otherwise negative other than as mentioned below and in HPI. PE: GENERAL: Alert and comfortable appearing. Appears stated age. Answers questions promptly and appropriately. Vital signs noted. HENT: Normocephalic, atraumatic. Hearing intact. Oral mucosa is pink and moist. EYES: Conjunctiva pink, sclera white, no periorbital swelling. CARDIOVASCULAR: Bradycardic at 56. No pedal edema. RESPIRATORY: Non-tachypneic, breathing comfortably on room air. GASTROINTESTINAL: Abdomen soft and non-distended; nontender GENITALURINARY: No flank tenderness. MUSCULOSKELETAL: Equal tone and mass bilaterally. SKIN: Warm, dry, soft, appropriate color for ethnicity. Anterior right lower extremity-she has a 4 cm x 6 cm shallow ulcer with absorbent dressing on the wound and significant yellow slough. There is no bleeding, erythema, foul odor, or signs of gross infection. Outer dressing replaced during the exam. No other lesions, rashes, or wounds. NEURO: Alert and Oriented X 3. No gross sensory deficits, or cognitive issues. PSYCH: Appropriate affect and mood. Meds Home Medications and Allergies Home Medications Medication Instructions Recorded Confirmed Type aspirin 81 mg tablet,delayed 81 mg PO DAILY 09/23/18 02/11/19 History release blood sugar diagnostic #10 each 09/23/18 11/20/18 History gabapentin 800 mg tablet 800 mg PO TID 09/23/18 02/11/19 History insulin detemir U-100 100 unit/mL 20 unit SUBCUT BID 09/23/18 02/11/19 History (3 mL) subcutaneous pen ticagrelor 90 mg tablet 90 mg PO BID 09/23/18 02/11/19 History hydrocodone 10 mg-acetaminophen 1 tab PO TID #42 tab 09/27/18 02/11/19 Rx 325 mg tablet furosemide 40 mg tablet 40 mg PO QAM #90 tab 11/18/18 02/11/19 Rx potassium chloride 20 mEq 20 meq PO DAILY #90 tab 11/18/18 02/11/19 Rx tablet,extended release pen needle, diabetic 29 gauge x #100 each 11/27/18 Rx 1/2 atorvastatin 20 mg PO BEDTIME 02/11/19 02/11/19 History Allergies Allergy/AdvReac Type Severity Reaction Status Date / Time Penicillins Allergy Mild childhood Verified 11/20/18 12:41 Exam Vital Signs (past 8 hours): - 02/12/19 02:10 02/12/19 03:18 02/12/19 03:19 Temperature 98.4 F 98.7 F Pulse Rate 67 66 Respiratory Rate 18 19 Blood Pressure 104/42 L 107/47 L Pulse Oximetry 94 94 02/12/19 08:58 02/12/19 09:05 Temperature 98.1 F Pulse Rate 61 56 L Respiratory Rate 20 Blood Pressure 107/49 L Pulse Oximetry 97 93 Oxygen Delivery Method Room Air Oxygen Flow Rate 1 Objective Labs Result Diagrams: 02/12/19 03:10 02/12/19 03:10 Labs: Laboratory Results - last 24 hr 02/11/19 02/11/19 02/11/19 18:04 18:04 18:04 WBC 16.2 H RBC 2.53 L Hgb 6.3 L* Hct 20.9 L* MCV 82.6 MCH 25.1 L MCHC 30.3 RDW 19.5 H Plt Count 548 H Neut % (Auto) 76.9 H Lymph % (Auto) 15.6 L Carolina % (Auto) 6.3 Eos % (Auto) 0.2 L Baso % (Auto) 1.0 Neut # (Auto) 13384 H Lymph # (Auto) 2500 Carolina # (Auto) 1000 H Eos # (Auto) 0 Baso # (Auto) 200 H PT 13.6 H INR 1.2 APTT 27 Sodium 140 Potassium 4.0 Chloride 106 Carbon Dioxide 26 BUN 18 H Creatinine 0.70 Estimated GFR > 60.0 BUN/Creatinine Ratio 25.7 H Glucose 188 H Hemoglobin A1c Calcium 9.8 Magnesium Total Bilirubin 0.3 AST 27 ALT 11 Alkaline Phosphatase 114 Troponin I Total Protein 7.6 Albumin 3.6 Globulin 4.0 Albumin/Globulin Ratio 0.9 L Blood Type Antibody Screen Crossmatch 02/11/19 02/11/19 02/12/19 18:04 19:28 03:10 WBC 14.0 H RBC 3.07 L Hgb 8.3 L Hct 25.3 L MCV 82.4 MCH 26.9 MCHC 32.7 RDW 17.2 H Plt Count 416 H Neut % (Auto) 69.1 Lymph % (Auto) 19.0 L Carolina % (Auto) 9.8 Eos % (Auto) 1.5 L Baso % (Auto) 0.6 Neut # (Auto) 9700 H Lymph # (Auto) 2700 Carolina # (Auto) 1400 H Eos # (Auto) 200 Baso # (Auto) 100 PT INR APTT Sodium Potassium Chloride Carbon Dioxide BUN Creatinine Estimated GFR BUN/Creatinine Ratio Glucose Hemoglobin A1c Calcium Magnesium 2.1 Total Bilirubin AST ALT Alkaline Phosphatase Troponin I Total Protein Albumin Globulin Albumin/Globulin Ratio Blood Type A Positive Antibody Screen Negative Crossmatch See Detail 02/12/19 02/12/19 02/12/19 03:10 03:10 03:10 WBC RBC Hgb Hct MCV MCH MCHC RDW Plt Count Neut % (Auto) Lymph % (Auto) [place] % (Auto) Eos % (Auto) Baso % (Auto) Neut # (Auto) Lymph # (Auto) [place] # (Auto) Eos # (Auto) Baso # (Auto) PT 13.1 H INR 1.1 APTT Sodium 143 Potassium 3.6 Chloride 110 H Carbon Dioxide 28 BUN 15 Creatinine 0.70 Estimated GFR > 60.0 BUN/Creatinine Ratio 21.4 Glucose 148 H Hemoglobin A1c Calcium 9.3 Magnesium Total Bilirubin AST ALT Alkaline Phosphatase Troponin I < 0.012 Total Protein Albumin Globulin Albumin/Globulin Ratio Blood Type Antibody Screen Crossmatch 02/12/19 03:10 WBC RBC Hgb Hct MCV MCH MCHC RDW Plt Count Neut % (Auto) Lymph % (Auto) [place] % (Auto) Eos % (Auto) Baso % (Auto) Neut # (Auto) Lymph # (Auto) Carolina # (Auto) Eos # (Auto) Baso # (Auto) PT INR APTT Sodium Potassium Chloride Carbon Dioxide BUN Creatinine Estimated GFR BUN/Creatinine Ratio Glucose Hemoglobin A1c 6.2 H Calcium Magnesium Total Bilirubin AST ALT Alkaline Phosphatase Troponin I Total Protein Albumin Globulin Albumin/Globulin Ratio Blood Type Antibody Screen Crossmatch Assessment & Plan Assessment and plan (1) GI bleed: Problem details: Per the patient she has had chronic dark stool for about a year. She had peptic ulcers found during a recent EGD, and continues to take a high dose of NSAIDs daily. No bright red blood per rectum, no stool since admission. Current visit: Yes Status: Acute (2) Venous stasis ulcer: Problem details: Chronic wound, being treated by the wound care center here at [facility]. Wound was changed yesterday, and she is scheduled for wound care tomorrow. Current visit: No Status: Acute (3) Chronic anticoagulation: Problem details: Has been on Brilinta since her LAD stenting last March. Brilinta was stopped 1 week prior to her revascularization procedure on 02/09, and has not been restarted. Current visit: No Status: Chronic (4) Iron deficiency anemia: Current visit: No Status: Chronic (5) Obstructive sleep apnea: Current visit: No Status: Chronic (6) Hypertension: Current visit: No Status: Chronic (7) Tobacco abuse: Current visit: No Status: Chronic (8) Non-healing wound: Problem details: As above Current visit: No Status: Chronic (9) COPD (chronic obstructive pulmonary disease): Current visit: No Status: Chronic Assessment & Plan narrative: This is a 78-year-old woman with a 1 year history of dark stool. She has blood on a blood thinner since March of 2018 for LAD stenting. She says she had a recent EGD by a insulator apprentice in [place], who saw ulcers in her stomach. She was a frequent over user of NSAIDs. She recently had a vascular procedure to open the artery in her right leg for the sake of a nonhealing ulcer on her right michaels. She has not had any recent change in her stool, no iliana blood in the stool, but she felt very weak and sick yesterday, and was found to be anemic on outpatient labs. She was sent to the ER and was found to have a hemoglobin of 6.3. I do not see evidence of an acute GI bleed. Putting all of these pieces together, I see someone who has chronic GI blood loss, likely from ulcers. As with any vascular procedure, she likely had some blood volume loss during her procedure 3 days ago. My suspicion is that her acute feeling of weakness yesterday, and her hemoglobin of 6.3 is a combination of chronic blood loss from her GI system as well as acute blood loss from her procedure on the . I've spoken with the patient at length about all of this. She feels much better after her transfusion. There is no sign currently that she is rapidly losing blood. She would rather continue to follow-up a as an outpatient with the insulator apprentice that she is already seeing, rather than have emergency intervention for something that at this point does not appear to be an emergency. Recommendations: Start with clear liquids, and advance diet as tolerated Recheck hemoglobin later today, and transfuse as needed for hemoglobin less than 8, symptomatic anemia, and hemodynamic instability If she tolerates p.o., and her hemoglobin is stable, I would consider discharging her home with clear return precautions, strict instructions to avoid NSAIDs, to avoid restarting her anticoagulation until her outpatient workup for GI bleed has been completed, and to follow up closely with her primary care and insulator apprentice. Please call if I can be of any further help.
--- NOTE | 2019-02-12 10:33 | PT.IIE ---
Current Diagnoses Iron deficiency anemia, unspecified (02/11/19) Obstructive sleep apnea (adult) (pediatric) (02/11/19) Essential (primary) hypertension (02/11/19) Varicose veins of unspecified lower extremity with ulcer of unspecified site (02/11/19) Chronic obstructive pulmonary disease, unspecified (02/11/19) Gastrointestinal hemorrhage, unspecified (02/11/19) Non-pressure chronic ulcer of unspecified part of unspecified lower leg with unspecified severity (02/11/19) Tobacco use (02/11/19) intermodal owner operator truck driver (current) use of anticoagulants (02/11/19) Surgical History (Last Reviewed 02/12/19 @ 10:13 by Estelle Ngo MD) Anesthesia (Resolved) History of cardiac catheterization (Resolved) History of hysterectomy (Resolved) History of knee replacement (Resolved) History of knee surgery (Resolved) History of melanoma excision (Resolved) History of partial hysterectomy (Resolved) History of pneumonectomy (Resolved) History of PTCA (Resolved) History of right hip replacement (Resolved) S/P hip replacement (Resolved) Medical History (Last Reviewed 02/12/19 @ 10:13 by Estelle Ngo MD) Adrenal cortical adenoma (Resolved) Atrial fibrillation (Inactive) Carotid atherosclerosis (Inactive) CHF (congestive heart failure) (Inactive) Coronary artery sclerosis (Inactive ~07/2018) Cyst of kidney, acquired (Resolved) Cystocele (Inactive) Diverticular disease of colon (Inactive) Dyslipidemia (Inactive) History of heart attack (Inactive ~2018) Insulin dependent diabetes mellitus (Inactive ~1998) Lung cancer (Resolved ~2007) Mitral regurgitation (Inactive) Non-alcoholic fatty liver disease (Inactive) Opiate dependence, continuous (Inactive) Pancreatic mass (Inactive) Pulmonary emphysema (Inactive) PVD (peripheral vascular disease) (Inactive) Right foot drop (Inactive Unknown) Sleep apnea (Inactive) Spinal stenosis of lumbar region (Inactive) Type 2 diabetes mellitus (Inactive) Venous stasis ulcer (Acute) Physical Therapy Inpatient Evaluation/Re-Eval M1 PT/OT-IP Prior Functional Status Start: 02/12/19 10:15 Freq: NEEDED Status: Active Protocol: Document 02/12/19 10:15 MB (Rec: 02/12/19 10:33 MB [id number]) Medical Review Prior Functional Status Medical History Reviewed Yes Diet/Fluid Consistency NPO Communication WNLs, pt does not have bottom teeth Mobility and Gait Used RW Activities of Daily Living and IADL's I, has tub bench Prior Functional Level (Other details) Drives Social History Household Members none Living Arrangements Apartment/Condo Number of Stairs To Enter/Railing? No steps Home Environment Tub/Shower Doors Home Equipment Front Wheel Walker Employment Status Retired M2 PT-IP Current Condition Start: 02/12/19 10:15 Freq: NEEDED Status: Active Protocol: Document 02/12/19 10:15 MB (Rec: 02/12/19 10:33 MB [id number]) Physical Therapy Current Condition Current Condition Evaluation Date 02/12/19 Treatment Diagnosis Decreased mobility in setting of possible GI bleed, low HGB, orthostasis Precautions Other Precautions Fall risk, orthostasis BP and HR in LUE: hook lying in bed: 107/49, 61. O2 sats 91 % on 1L; sitting 115/57, 65 and sats fluctuate on RA; standing 1' 92/45, 67 and PT communicates orthostasis to nsg M3 PT-IP Subjective Start: 02/12/19 10:15 Freq: NEEDED Status: Active Protocol: Document 02/12/19 10:15 MB (Rec: 02/12/19 10:33 MB [id number]) Subjective Physical Therapy Visit Type Type Initial Evaluation Visit Start Time 08:25 Visit Stop Time 08:49 Total Visit Minutes 24 Physical Therapy Visit Comments Patient Goals To go home today with daughter asst Therapy Pain Assessment Pain Present Pain Present Pain Reported Location Right Lower Leg Pain Behaviors Facial Grimacing,Guarding Pain Management Techniques Re-positioning Generalized Scale Used [place] (Faces) Pain Behaviors Facial Grimacing,Guarding Pain Management Techniques Re-positioning M4 PT-IP Mobility and Gait Start: 02/12/19 10:15 Freq: NEEDED Status: Active Protocol: Document 02/12/19 10:15 MB (Rec: 02/12/19 10:33 MB [id number]) PT-Bed Mobility Assessment Supine to Sit Supine to Sit Standby Assistance Scooting Scooting to Edge of Bed Standby Assistance PT-Transfer Assessment Sit to and From Stand Sit to and from Stand Minimal Assistance Equipment Transfer Assistive Device None Transfers Transfer Destination Chair Transfer Technique Stand Step Pivot Transfer Ability Level of Assist Moderate Assistance Comments Mobility Comments Pt presents with right foot drop and has trouble getting balance in standing and stepping forwards. PT provides support at LUE and gait belt and then RW placed in front of her when room Gait Assessment Gait Gait Assistance Required: Moderate Assistance Distance (Feet) 2 Assistive Devices Assistive Device Gait Belt,Front Wheeled Walker Gait Deviations General Gait Pattern Antalgic,Decreased Stride Length,Decreased Feet Clearance,Flexed Trunk,Narrow Based Gait,Step-to Gait Factors Limiting Gait Function Factors Limiting Gait Function Decreased Strength Comments Gait Comments Pt presents with right foot drop and tends to guard right LE and distal michaels from touch d/t pain when touched. She has trouble advancing the right leg with transfers and short gait forward and back with RW and mod A PT-Balance Assessment Sitting Balance and Reactions Static Sitting Balance Ability Good Dynamic Sitting Balance Ability Good Standing Balance and Reactions Static Standing Balance Ability Poor Dynamic Standing Balance Ability Poor Device Used PT assist M5 PT-IP Objective Assessments Start: 02/12/19 10:15 Freq: NEEDED Status: Active Protocol: Document 02/12/19 10:15 MB (Rec: 02/12/19 10:33 MB [id number]) Orientation Orientation/Cognition Level of Alertness Alert Orientation Name,Age,Month,Date,Year Safety Awareness Decreased Safety Awareness Comments Pt presents with poor dentition, no lower teeth, poor insight to safety including needs for assistance with mobility Gross Range of Motion Upper Extremity ROM Assessment Within Functional Limits Lower Extremity ROM Assessment Right Impaired Impairments Right foot drop Strength Upper Extremity Strength Assessment Within Functional Limits Lower Extremity Strength Assessment Right Impaired Ankle 0/5 Sensation Assessment Comments Sensation Comments Decreased sensation right foot and pt with hypersensitivity right michaels at wound that is dressed M7 PT-IP Assessment and Plan Start: 02/12/19 10:15 Freq: NEEDED Status: Active Protocol: Document 02/12/19 10:15 MB (Rec: 02/12/19 10:33 MB [id number]) PT Summary Assessment and Plan Potential Rehabilitation Potential Fair Status of Condition at Evaluation Unstable Summary Impairments Pain,Strength,Balance, Cognition,Bed Mobility, Transfers,Gait,Activity Tolerance Assessment Summary Pt is a 78 y/o female presenting to ED with severe anemia, dizziness and light- headedness. Source of anemia is not yet determined and pt is NPO. Her Hgb is increased this date to 8.3. She presents with orthostatic hypotension with numbers written in precautions. She is at increased risk for falling d/t orthostasis, right foot drop and poor safety awareness. Further, her O2 sats decrease into the mid-low 80s with mobility on RA and increase to 93% on RA once up in chair. PT alerts nsg that O2 is left off d/t sats at 93%. Pt reports a fall 6 months ago and she injured her right leg and has had non-healing wound and two surgeries since that time. She lives alone at baseline, drives and uses RW. 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 Pt denies pain but guards RLE in fear of PT touching it and grimaces when PT is near her leg and so PT documents pain in pain section . Pt has poor insight to safety, poor mobility d/t multiple medical problems. She has many medical co- morbidities. She will benefit from 24 hour care and SNF consult at d/c. Goals Bed Mobility Goal Independent Transfer Goal Independent,Front Wheeled Walker Gait Goal Independent,Front Wheel Walker Gait Distance 100 Other Goals Pt will perform HEP with I. Pt will perform WNLs on a standardized balance test to decrease fall risk. Days to Meet Goals 10 Frequency of Treatment Frequency Of Treatment Once a Day Treatment Plan Physical Therapy Treatment Plan Bed Mobility Training,Transfer Training,Gait Training, Therapeutic Exercise,Balance Retraining,Discharge Planning, Neuromuscular Re-ed, Coordination Retraining Recommendations To Nursing Amount of Assist Needed 1 Person Assist Discharge Recommendations PT Discharge Recommendations SNF Rehab
--- NOTE | 2019-02-12 10:49 | PT-IP ANOTE ---
PT leaves pt up in chair. Chair alarm not available and PT communicates with ASSISTANT REFINERY OPERATOR who is going to obtain one. PT communicates orthostasis to nsg and that pt is up in chair.
--- NOTE | 2019-02-12 11:15 | PC.NURSE ---
Assess- Patient is A&Ox3. She is sitting up in chair and is relaxed. ICU just called to let this RN know her heart rate was 50 and went down to 48. Pt is sleeping at this time. Dressing to laura blankenship, pt states that she does get some debridement done down at the wound clinic. Pt is agreeable to let this RN change the dressing and look more closely at the skin ulcer. Patient states that she fell some time ago and hit her leg and the wound did not heal. Pt had an EKG x2 today and is aware of the results... Pt is resting now and denies discomfort.
[2019-02-12] MEDS: INSULIN ASPART 100 UNIT/ML INSULN PEN SUBCUT (11:41)
[2019-02-12 12:43] LABS: Basophils Absolute Auto 100 /uL (0-100); Eosinophils Absolute Auto 300 /uL (0-450); Eosinophils Percent Auto 2.3 % (2-4); Hematocrit 27.3 % (36-46); Hemoglobin 8.8 g/dL (12.0-16.0); Lymphocytes Absolute Auto 2600 /uL (1100-4500); Lymphocytes Percent Auto 17.6 % (25-40); Mean Corpuscular HGB Conc 32.3 % (30-36); Mean Corpuscular Volume 83.6 fL (80-100); Monocytes Absolute Auto 1200 /uL (0-900); Monocytes Percent Auto 8.2 % (3-14); Neutrophils Absolute Auto 10300 /uL (1500-7000); Neutrophils Percent Auto 70.9 % (50-75); Platelet Count 418 X10^3/uL (150-400); Red Blood Cell Count 3.27 X10^6/uL (4.0-5.2); Red Cell Distribution Width 16.9 % (11.6-14.8); White Blood Cell Count 14.5 X10^3/uL (4.5-11.0)
--- NOTE | 2019-02-12 12:50 | CM.IDA ---
Discharge Planning/Care Management CM Discharge Assessment Start: 02/12/19 12:28 Freq: Status: Active Protocol: Document 02/12/19 12:28 CINDY (Rec: 02/12/19 12:50 CINDY [id number]) Discharge Planning Assessment Assigned Room Service Server CATRINA Álvarez DPOA/Assigned Designee Name favian Daley, [place], [place] Contact Information Meenakshi: [phone], Neli: [phone] Advance Directives? No History Provided By Patient Prior Living Arrangements Apartment/Condo Household Members none Type of transporation used prior to Drives own vehicle admit Independent with ADL's Yes Is patient alert and oriented? Yes Needs Assistance With Meal Prep,Home Chores / Shopping Barriers to Discharge No Comment Pt admitted observation status w/low blood count and possible GI Bleed, surgery consulted and has recommended conservative management. PCP: Dr Faiza Rosales: [facility]/ [facility] [employer] met w/pt this morning at bedside to introduce role. Pt explains she has been doing well in her indp apt at [facility] and has local dtr Meenakshi to assist as needed. Pt uses a walker as needed, she explains she is mostly indp. Pt hopeful to go back home today, dtr Meenakshi will be visiting later. Review of therapy note now indicates pt has poor safety awareness and may benefit from SNF stay before return home to indp. apt. Pt remains obs at this time. Will follow closely, may inevitably DC home w/ HH CATRINA Garner Discharge Plan Home Transportation Arrangement Family Additional Comment Following closely for DC needs Whiteboard Updated in Patient Room with Yes name and ext. # of Room Service Server Review Status In Process
[2019-02-12 13:09] LABS: Add Manual Diff / Slide Review SLIDE REVIEW
[2019-02-12 13:10] LABS: RBC Morphology Normal Morphology
--- NOTE | 2019-02-12 13:17 | PM.DS.1 ---
History of Present Illness History of Present Illness Date Patient Seen: 02/12/19 Time Patient Seen: 13:17 Chief complaint: Low blood count Narrative: As per Luis Culver: MARGARETTE: Miss Drea Mccain is a 78-year-old female with a history significant for insulin-dependent diabetes, myocardial infarction with stenting to her LAD, atrial fibrillation, CHF, COPD, sleep apnea, acquired right footdrop as sequelae of right hip replacement, chronic back pain, diverticulosis and history of a nonhealing venous stasis ulcer over right lower extremity who presents to the ER today sent in by her primary care provider related to severe anemia. The patient contact her primary care related to being dizziness and lightheaded with confusion. The patient was sent in by her PCP following lab work showing severe anemia. The patient is status post vascular procedure by Interventional Radiology at [facility] to revascularize the right leg for nonhealing wound. The patient was started on tigagrelor following the procedure. The patient reports having dark stools for at least 1 week. She reports stools of formed but is passing foul-smelling gas. She reports that her stools have lightening color and are normal appearing. The patient reports no nasal congestion or sore throat. She has had no chest pain and denies palpitations. She reports no shortness of breath and no exertional dyspnea. She has had no abdominal pain and denies nausea vomiting. She reports no urinary symptoms or hematuria. Patient does have chronic pain and had been prescribed meloxicam she states she does not take instead she takes 3 Aleve twice daily and takes gabapentin 3 times daily. She reports mild decrease in sensation in her feet related to diabetes. Upon arrival to the ER the patient is afebrile with a temperature 97.5?, heart rate of 63, blood pressure 110/47, respiratory rate of 20 saturating 98% on room air. No imaging was obtained in the ER, the patient's atrial fibrillation on telemetry. On laboratory analysis the patient has elevated white count of 16.2, hemoglobin of 6.3, hematocrit of 20.9 with platelets of 540. Her electrolytes are within normal limits she has a BUN of 18 and creatinine of 0.7. Her nonfasting glucose is 188. She has normal liver functions with a BUN of 0.3, AST of 27 ALT of 11 and alkaline phosphatase of 114. She has a PT of 13.6 with an INR 1.2 and a PTT of 27. A stat type and screen is ordered. Dr. Ngo, general surgery has agreed to consult and evaluate the patient. The patient is admitted to the medicine service for severe anemia secondary to gastrointestinal bleed. Discharge Providers Provider Date of admission: 02/11/19 19:53 Discharge Date: 02/12/19 Primary care physician: Benny Kendall MD Consults: 02/11/19 19:50 Consult to General Surgery Stat Comment: Consulting Provider: Estelle Ngo Reason for consultation: GI bleed Has provider been notified: Yes 02/11/19 21:41 Consult to Dietitian, Adult Routine Comment: Reason For Exam: Diabetes type 2, impaired wound healing, obesity 02/11/19 21:42 Consult to Discharge Planning Routine Comment: Consult to Occupational Therapy Evaluate & Treat Comment: Impaired mobility with chronic pain Physician Instructions: Evaluate and treat Consult to Physical Therapy Evaluate & Treat Comment: Impaired mobility with chronic pain Physician Instructions: Evaluate and Treat 02/11/19 21:43 Consult to Physician Routine Comment: Consulting Provider: Estelle Ngo Reason for consultation: Gastrointestinal bleed Has provider been notified: Yes Discharge provider: Luis Weiner DO Summary Hospital Course Discharge Diagnosis: 1. Acute GI bleed with severe anemia, present on admission, resolved. 2. Atrial fibrillation, unknown chronicity, present on admission, active. 3. Coronary artery disease and PAD, chronic, stable - s/p recent atherectomy at [facility] on 02/10/19. 4. Congestive heart failure, unknown type, active. 5. Diabetes type 2, insulin dependent, chronic, present on admission, stable. 6. Chronic back pain, present on admission, stable. 7. Hyperlipidemia, chronic, stable. 8. Nonhealing wound right lower extremity, chronic, active 9. COPD, current smoker, present on admission, active. Hospital Course: This is a 78-year-old female patient who was recently relocated from [place] to live with family in [place]. Patient has a complex medical history including CAD s/p stenting in 03/2018 and has recently undergone interventional radiology procedure for revascularization of the right leg (atherectomy) for which she was taking ticagrelor and has also been taking above the recommended dose of Aleve 3 tablets twice daily for her chronic pain. She was admitted for a GI bleed. Her Brilinta was held given she is >6 months out from her and cardiac stents and there is limited data on DAPT after atherectomy and she had a significant GI Bleed requiring transfusion. She can likely resume aspirin after couple days. She needs to follow-up with her primary care provider and follow-up with an outpatient fly raiser lockstitch which she has already been seeing for a endoscopy and/or colonoscopy. She should also follow up with cardiology and vascular surgery to discuss when to re-initiate her anti-platelet medications. 1. Acute GI bleed with severe anemia, present on admission, resolved. -patient sent to the ER by her primary care provider related to outpatient labs finding severe anemia. -hemoglobin upon arrival at 6.3 with a hemoglobin of 20.0. Patient complained of dizziness and lightheadedness and confusion. Patient denied chest pain or shortness of breath. Patient received 2 units PRBCs, with appropriate response to a hemoglobin of 8.3 after transfusion. Repeat a few hours later showed a rising hemoglobin to 8.8. -patient endorsed black stools for 1 week without complaints of abdominal pain or cramping in the setting of diverticulosis and overuse of NSAIDs. -patient reports bowel movements are formed and have become normal in color. -ticagrelor and aspirin are held in the setting of acute bleed. -Dr. Ngo, general surgery was consulted and we appreciate her recommendations. She does not require an endoscopy at this time. Her hemoglobin is rising. She will discharge on b.i.d. Nexium to take for the next 2 weeks, and then she should take 40 mg daily after that. She is already seeing a fly raiser lockstitch, whom she can see for an outpatient endoscopy and/or colonoscopy. -she was tolerating a diet upon discharge, and had a formed, normal colored stool upon discharge. -I've ordered a repeat CBC as an outpatient to be drawn in approximately 5 days. 2. Atrial fibrillation, unknown chronicity, present on admission, active. -patient's atrial fibrillation with controlled rate of 63 on telemetry. -she has a right bundle block branch block on EKG. Initial EKG did show some ST depressions, however on repeat these were stable. She denied chest pains and she did have a negative troponin. 3. Coronary artery disease and PAD, chronic, stable - s/p recent atherectomy at [facility] on 02/10/19. -patient without complaints of chest pain or shortness of breath in the setting of severe anemia. -can likely resume aspirin in a couple of days, would hold Brilinta at this time given it is likely for her coronary stents which were reportedly placed in March. Further discussion noted above re: reason for holding brilinta as well. 4. Congestive heart failure, unknown type, active. -continue Lasix 40 mg daily. 5. Diabetes type 2, insulin dependent, chronic, present on admission, stable. -continue patient's detemir insulin 20 units twice daily. 6. Chronic back pain, present on admission, stable. -patient with spinal stenosis with resultant leg pains -continue home regimen of gabapentin 800 mg 3 times daily. 7. Hyperlipidemia, chronic, stable. -continue home regimen of atorvastatin 20 mg at bedtime 8. Nonhealing wound right lower extremity, chronic, active -clean wound right lower leg being care for by Wound Care. -dressing recently changed, will keep dressing intact and patient to continue outpatient wound care therapy. 9. COPD, current smoker, present on admission, active. -patient presently smokes 1/2 pack per day. -no complaints of shortness of breath or wheezing. -Nicoderm patch 7 mg topically daily. Dispo: Discharged home in stable condition. Exam Vital Signs (past 8 hours): - 02/12/19 08:58 02/12/19 09:05 02/12/19 11:01 Temperature 98.1 F Pulse Rate 61 56 L Respiratory Rate 20 Blood Pressure 107/49 L Pulse Oximetry 97 93 90 L 02/12/19 11:56 Temperature 96.8 F L Pulse Rate 50 L Respiratory Rate 20 Blood Pressure 124/50 L Pulse Oximetry 94 Oxygen Delivery Method Room Air Oxygen Flow Rate 0 Narrative Exam Narrative: GENERAL APPEARANCE: Elderly female. Well developed, well nourished, in no acute distress. SKIN: clean appearing wound right anterior lower leg approximately 6 cm by 3 cm. Dressing c/d/i. HEENT: The sclerae were anicteric and conjunctivae were pink and moist. Extraocular movements were intact and pupils were equal, round with normal accommodation. External inspection of the ears and nose showed no scars, lesions, or masses. Lips, teeth, and gums showed normal mucosa. The oral mucosa, hard and soft palate, tongue and posterior pharynx were unremarkable. NECK: Supple and symmetric. There was no thyroid enlargement, and no tenderness, or masses were felt. CHEST: Normal AP diameter and normal contour without any kyphoscoliosis. LUNGS: Auscultation of the lungs revealed no wheezes, rhonchi, or rales. CARDIOVASCULAR: There was a regular rate and rhythm without any murmurs, gallops, rubs. Peripheral pulses were 2+ and symmetric. ABDOMEN: Soft and nontender with normal bowel sounds. No ascites was noted. MUSCULOSKELETAL: There was no tenderness or effusions noted. Muscle strength and tone were normal. EXTREMITIES: No cyanosis, clubbing, or edema. NEUROLOGIC: Alert and oriented x 3. Normal affect. Patient is ambulatory with walker. Strength is +5/5 in the Upper Extremities and Lower Extremities Bilaterally. Sensation to touch was normal. Objective Labs Result Diagrams: 02/12/19 12:30 02/12/19 03:10 Labs: Laboratory Results - last 24 hr 02/11/19 02/11/19 02/11/19 18:04 18:04 18:04 WBC 16.2 H RBC 2.53 L Hgb 6.3 L* Hct 20.9 L* MCV 82.6 MCH 25.1 L MCHC 30.3 RDW 19.5 H Plt Count 548 H Neut % (Auto) 76.9 H Lymph % (Auto) 15.6 L [place] % (Auto) 6.3 Eos % (Auto) 0.2 L Baso % (Auto) 1.0 Neut # (Auto) 92108 H Lymph # (Auto) 2500 [place] # (Auto) 1000 H Eos # (Auto) 0 Baso # (Auto) 200 H RBC Morphology PT 13.6 H INR 1.2 APTT 27 Sodium 140 Potassium 4.0 Chloride 106 Carbon Dioxide 26 BUN 18 H Creatinine 0.70 Estimated GFR > 60.0 BUN/Creatinine Ratio 25.7 H Glucose 188 H Hemoglobin A1c Calcium 9.8 Magnesium Total Bilirubin 0.3 AST 27 ALT 11 Alkaline Phosphatase 114 Troponin I Total Protein 7.6 Albumin 3.6 Globulin 4.0 Albumin/Globulin Ratio 0.9 L Blood Type Antibody Screen Crossmatch 02/11/19 02/11/19 02/12/19 18:04 19:28 03:10 WBC 14.0 H RBC 3.07 L Hgb 8.3 L Hct 25.3 L MCV 82.4 MCH 26.9 MCHC 32.7 RDW 17.2 H Plt Count 416 H Neut % (Auto) 69.1 Lymph % (Auto) 19.0 L [place] % (Auto) 9.8 Eos % (Auto) 1.5 L Baso % (Auto) 0.6 Neut # (Auto) 9700 H Lymph # (Auto) 2700 [place] # (Auto) 1400 H Eos # (Auto) 200 Baso # (Auto) 100 RBC Morphology PT INR APTT Sodium Potassium Chloride Carbon Dioxide BUN Creatinine Estimated GFR BUN/Creatinine Ratio Glucose Hemoglobin A1c Calcium Magnesium 2.1 Total Bilirubin AST ALT Alkaline Phosphatase Troponin I Total Protein Albumin Globulin Albumin/Globulin Ratio Blood Type A Positive Antibody Screen Negative Crossmatch See Detail 02/12/19 02/12/19 02/12/19 03:10 03:10 03:10 WBC RBC Hgb Hct MCV MCH MCHC RDW Plt Count Neut % (Auto) Lymph % (Auto) [place] % (Auto) Eos % (Auto) Baso % (Auto) Neut # (Auto) Lymph # (Auto) [place] # (Auto) Eos # (Auto) Baso # (Auto) RBC Morphology PT 13.1 H INR 1.1 APTT Sodium 143 Potassium 3.6 Chloride 110 H Carbon Dioxide 28 BUN 15 Creatinine 0.70 Estimated GFR > 60.0 BUN/Creatinine Ratio 21.4 Glucose 148 H Hemoglobin A1c Calcium 9.3 Magnesium Total Bilirubin AST ALT Alkaline Phosphatase Troponin I < 0.012 Total Protein Albumin Globulin Albumin/Globulin Ratio Blood Type Antibody Screen Crossmatch 02/12/19 02/12/19 03:10 12:30 WBC 14.5 H RBC 3.27 L Hgb 8.8 L Hct 27.3 L MCV 83.6 MCH 27.0 MCHC 32.3 RDW 16.9 H Plt Count 418 H Neut % (Auto) 70.9 Lymph % (Auto) 17.6 L [place] % (Auto) 8.2 Eos % (Auto) 2.3 Baso % (Auto) 1.0 Neut # (Auto) 61489 H Lymph # (Auto) 2600 [place] # (Auto) 1200 H Eos # (Auto) 300 Baso # (Auto) 100 RBC Morphology Normal morphology PT INR APTT Sodium Potassium Chloride Carbon Dioxide BUN Creatinine Estimated GFR BUN/Creatinine Ratio Glucose Hemoglobin A1c 6.2 H Calcium Magnesium Total Bilirubin AST ALT Alkaline Phosphatase Troponin I Total Protein Albumin Globulin Albumin/Globulin Ratio Blood Type Antibody Screen Crossmatch Discharge Plan Discharge Plan Patient Disposition: Home Discharge comment: You were admitted to the hospital with a GI bleed. Your blood counts were low when you arrived and you required 2 units of blood. After your transfusion your blood counts improved and there was no further evidence of bleeding. You should continue the oral nexium prescribed for 2 weeks and follow up as soon as possible for a repeat endoscopy / possible colonoscopy with your fly raiser lockstitch. Try and see your PCP in the next week for a repeat blood draw. One was ordered for you for 02/17/18. Your brilinta was held upon discharge, you should also call your cardiology office to see if this needs to be restarted. You can likely continue aspirin, however this may need to be held if your bleeding continues. Discharge orders & Medications Prescriptions: New esomeprazole magnesium [Nexium] 40 mg capsule,delayed release(DR/EC) 40 mg PO BID 14 Days Qty: 28 RF: 0 Continued hydrocodone-acetaminophen 10-325 mg tablet 1 tab PO TID Qty: 42 RF: 0 potassium chloride 20 mEq tablet extended release 20 meq PO DAILY Qty: 90 RF: 3 furosemide [Lasix] 40 mg tablet 40 mg PO QAM Qty: 90 RF: 3 (DME) pen needle, diabetic [BD Ultra-Fine Orig Pen Needle] 29 gauge x 1/2 needle See Rx Instructions .ROUTE .MEDSUPPLY Qty: 100 RF: 3 aspirin 81 mg tablet,delayed release (DR/EC) 81 mg PO DAILY RF: 0 gabapentin 800 mg tablet 800 mg PO TID RF: 0 Levemir FlexTouch U-100 Insuln 100 unit/mL (3 mL) insulin pen 20 unit SUBCUT BID RF: 0 (DME) Blood Glucose Test strip See Dose Instructions .ROUTE .MEDSUPPLY Qty: 10 RF: 0 atorvastatin 20 mg tablet 20 mg PO BEDTIME RF: 0 Discontinued Brilinta 90 mg tablet 90 mg PO BID RF: 0 Other Ambulatory Orders: Complete Blood Count NO DIFF (Routine) Timeframe: 5 Days Facility: [facility] - Location: Laboratory Ordered By: Luis Weiner Follow up/Referrals: Benny Kendall MD [Primary Care Provider] - Diet/Activity/Treatments Diet: Diet as Tolerated Activity: As tolerated. Visit Report/Discharge Packet Instructions: DI for Heart Failure, Gastrointestinal Bleeding Discharge Data Primary Care Provider: Benny Kendall Discharges patient from system. Discharge Date/Time: 02/12/19 13:42
== END 2019-02-12 13:42 | disposition home or self-care (01) ==
LOC: ED 19:50 → AC 21:11
PROVIDERS: Internal Medicine; Nurse Practitioner Family; Admitting Provider Nurse Practitioner Adult Health; Emergency Provider Emergency Medicine; PCP Student in an Organized Health Care Education/Training Program; Visit Provider Nurse Practitioner Adult Health
DX: K92.2 Gastrointestinal hemorrhage, unspecified (principal); D64.9 Anemia, unspecified; I83.009 Varicose veins of unspecified lower extremity with ulcer of unspecified site; L97.909 Non-pressure chronic ulcer of unspecified part of unspecified lower leg with unspecified severity; Z79.01 Long term (current) use of anticoagulants; G47.33 Obstructive sleep apnea (adult) (pediatric); J44.9 Chronic obstructive pulmonary disease, unspecified; F17.210 Nicotine dependence, cigarettes, uncomplicated; E11.9 Type 2 diabetes mellitus without complications; Z79.4 Long term (current) use of insulin; I48.91 Unspecified atrial fibrillation; I25.10 Atherosclerotic heart disease of native coronary artery without angina pectoris; I50.9 Heart failure, unspecified; I11.0 Hypertensive heart disease with heart failure
CPT/HCPCS: 36415; 36430; 80048; 80053; 82962; 83036; 83735; 84484; 85025; 85610; 85730; 86850; 86900; 86901; 93005; 94760; 96374; 96375; 97162; 99225; 99284; G0378; P9016; C9113; J2270; J2405; J3480

== ENCOUNTER → 2019-02-13 13:15 | Outpatient (CLI) | payer MEDICARE, OTHER, SELFPAY ==
[2019-02-11 20:45] VITALS: BMI 32.3
== END ==
PROVIDERS: PCP Student in an Organized Health Care Education/Training Program; Visit Provider Family Medicine
DX: I70.238 Atherosclerosis of native arteries of right leg with ulceration of other part of lower leg (principal); E11.622 Type 2 diabetes mellitus with other skin ulcer; I87.2 Venous insufficiency (chronic) (peripheral); L97.811 Non-pressure chronic ulcer of other part of right lower leg limited to breakdown of skin; R60.0 Localized edema
CPT/HCPCS: 11042; 99214

== ENCOUNTER → 2019-02-17 14:09 | Outpatient (CLI) | payer MEDICARE, OTHER, SELFPAY ==
[2019-02-11 20:45] VITALS: BMI 32.3
[2019-02-17 15:16] LABS: Add Manual Diff / Slide Review NO; Basophils Absolute Auto 200 /uL (0-100); Basophils Percent Auto 1.5 % (0-2); Eosinophils Absolute Auto 200 /uL (0-450); Eosinophils Percent Auto 1.9 % (2-4); Hematocrit 28.6 % (36-46); Hemoglobin 9.2 g/dL (12.0-16.0); Lymphocytes Absolute Auto 2000 /uL (1100-4500); Lymphocytes Percent Auto 17.2 % (25-40); Mean Corpuscular HGB Conc 32.1 % (30-36); Mean Corpuscular Hemoglobin 26.5 PG (26-34); Mean Corpuscular Volume 82.8 fL (80-100); Monocytes Absolute Auto 1000 /uL (0-900); Monocytes Percent Auto 8.5 % (3-14); Neutrophils Absolute Auto 8400 /uL (1500-7000); Neutrophils Percent Auto 70.9 % (50-75); Platelet Count 457 X10^3/uL (150-400); Red Blood Cell Count 3.45 X10^6/uL (4.0-5.2); Red Cell Distribution Width 18.3 % (11.6-14.8); White Blood Cell Count 11.8 X10^3/uL (4.5-11.0)
== END ==
PROVIDERS: Family Provider Family Medicine; PCP Student in an Organized Health Care Education/Training Program; Visit Provider Internal Medicine
DX: D72.829 Elevated white blood cell count, unspecified (principal); D47.3 Essential (hemorrhagic) thrombocythemia; D64.9 Anemia, unspecified
CPT/HCPCS: 36415; 85025

== ENCOUNTER → 2019-02-19 13:52 | Outpatient (CLI) | payer MEDICARE, OTHER, SELFPAY ==
[2019-02-11 20:45] VITALS: BMI 32.3
== END ==
PROVIDERS: Family Provider Family Medicine; PCP Student in an Organized Health Care Education/Training Program; Visit Provider Family Medicine
DX: I70.235 Atherosclerosis of native arteries of right leg with ulceration of other part of foot (principal); E11.622 Type 2 diabetes mellitus with other skin ulcer; I87.2 Venous insufficiency (chronic) (peripheral); L97.811 Non-pressure chronic ulcer of other part of right lower leg limited to breakdown of skin; R60.0 Localized edema
CPT/HCPCS: 11042; 11045; 99214

== ENCOUNTER → 2019-03-05 14:48 | Outpatient (CLI) | payer MEDICARE, OTHER, SELFPAY ==
[2019-02-11 20:45] VITALS: BMI 32.3
== END ==
PROVIDERS: Family Provider Family Medicine; PCP Student in an Organized Health Care Education/Training Program; Visit Provider Family Medicine
DX: I70.235 Atherosclerosis of native arteries of right leg with ulceration of other part of foot (principal); I87.2 Venous insufficiency (chronic) (peripheral); E11.622 Type 2 diabetes mellitus with other skin ulcer; L97.811 Non-pressure chronic ulcer of other part of right lower leg limited to breakdown of skin; R60.0 Localized edema
CPT/HCPCS: 11042; 11045; 87070; 87075; 87077; 87205

== ENCOUNTER → 2019-03-12 13:40 | Outpatient (CLI) | payer MEDICARE, OTHER, SELFPAY ==
[2019-02-11 20:45] VITALS: BMI 32.3
== END ==
PROVIDERS: Family Provider Family Medicine; PCP Student in an Organized Health Care Education/Training Program; Visit Provider Family Medicine
DX: I87.2 Venous insufficiency (chronic) (peripheral) (principal); E11.622 Type 2 diabetes mellitus with other skin ulcer; I70.235 Atherosclerosis of native arteries of right leg with ulceration of other part of foot; L97.811 Non-pressure chronic ulcer of other part of right lower leg limited to breakdown of skin; R60.0 Localized edema; I73.9 Peripheral vascular disease, unspecified
CPT/HCPCS: 97597; 97598

== ENCOUNTER → 2019-03-14 | Outpatient (CLI) | payer MEDICARE, OTHER, SELFPAY ==
[2019-02-11 20:45] VITALS: BMI 32.3
== END ==
LOC: WC 04-09 15:00
PROVIDERS: Family Provider Family Medicine; PCP Student in an Organized Health Care Education/Training Program; Referring Provider Student in an Organized Health Care Education/Training Program; Visit Provider Family Medicine
DX: I70.238 Atherosclerosis of native arteries of right leg with ulceration of other part of lower leg (principal); L97.811 Non-pressure chronic ulcer of other part of right lower leg limited to breakdown of skin; R60.0 Localized edema; M79.604 Pain in right leg
CPT/HCPCS: 29581; 99212

== ENCOUNTER → 2019-03-19 14:01 | Outpatient (CLI) | payer MEDICARE, OTHER, SELFPAY ==
[2019-02-11 20:45] VITALS: BMI 32.3
== END ==
PROVIDERS: Family Provider Family Medicine; PCP Student in an Organized Health Care Education/Training Program; Referring Provider Student in an Organized Health Care Education/Training Program; Visit Provider Family Medicine
DX: I87.2 Venous insufficiency (chronic) (peripheral) (principal); I70.235 Atherosclerosis of native arteries of right leg with ulceration of other part of foot; E11.622 Type 2 diabetes mellitus with other skin ulcer; L97.811 Non-pressure chronic ulcer of other part of right lower leg limited to breakdown of skin; E11.51 Type 2 diabetes mellitus with diabetic peripheral angiopathy without gangrene; R60.0 Localized edema
CPT/HCPCS: 97597; 97598

== ENCOUNTER → 2019-03-26 09:50 | Outpatient (CLI) | payer MEDICARE, OTHER, SELFPAY ==
[2019-02-11 20:45] VITALS: BMI 32.3
== END ==
PROVIDERS: Family Provider Family Medicine; PCP Student in an Organized Health Care Education/Training Program; Referring Provider Student in an Organized Health Care Education/Training Program; Visit Provider Family Medicine
DX: I70.238 Atherosclerosis of native arteries of right leg with ulceration of other part of lower leg (principal); I87.2 Venous insufficiency (chronic) (peripheral); E11.622 Type 2 diabetes mellitus with other skin ulcer; L97.811 Non-pressure chronic ulcer of other part of right lower leg limited to breakdown of skin
CPT/HCPCS: 15271; 15272; Q4110

== ENCOUNTER → 2019-04-03 10:12 | Outpatient (CLI) | payer MEDICARE, OTHER, SELFPAY ==
[2019-02-11 20:45] VITALS: BMI 32.3
== END ==
PROVIDERS: Family Provider Family Medicine; PCP Student in an Organized Health Care Education/Training Program; Referring Provider Student in an Organized Health Care Education/Training Program; Visit Provider Family Medicine
DX: I70.238 Atherosclerosis of native arteries of right leg with ulceration of other part of lower leg (principal); I87.2 Venous insufficiency (chronic) (peripheral); E11.622 Type 2 diabetes mellitus with other skin ulcer; L97.811 Non-pressure chronic ulcer of other part of right lower leg limited to breakdown of skin; R60.0 Localized edema
CPT/HCPCS: 11042; 11045

== ENCOUNTER → 2019-04-04 12:22 | Outpatient (CLI) | payer MEDICARE, OTHER, SELFPAY ==
[2019-02-11 20:45] VITALS: BMI 32.3
[2019-04-04 12:54] LABS: Add Manual Diff / Slide Review NO; Basophils Absolute Auto 200 /uL (0-100); Basophils Percent Auto 1.3 % (0-2); Eosinophils Absolute Auto 600 /uL (0-450); Eosinophils Percent Auto 5.3 % (2-4); Hematocrit 33.6 % (36-46); Hemoglobin 10.6 g/dL (12.0-16.0); Lymphocytes Absolute Auto 2300 /uL (1100-4500); Lymphocytes Percent Auto 19.5 % (25-40); Mean Corpuscular HGB Conc 31.7 % (30-36); Mean Corpuscular Hemoglobin 26.5 PG (26-34); Mean Corpuscular Volume 83.8 fL (80-100); Monocytes Absolute Auto 900 /uL (0-900); Monocytes Percent Auto 7.5 % (3-14); Neutrophils Absolute Auto 7900 /uL (1500-7000); Neutrophils Percent Auto 66.4 % (50-75); Platelet Count 300 X10^3/uL (150-400); Red Cell Distribution Width 20.4 % (11.6-14.8); White Blood Cell Count 11.8 X10^3/uL (4.5-11.0)
[2019-04-04 13:16] LABS: Anisocytosis 2+; Poikilocytosis 1+
[2019-04-04 13:44] LABS: BUN Creatinine Ratio 27.1 (6-22); Blood Urea Nitrogen 19 mg/dL (7-17); Calcium 10.3 mg/dL (8.4-10.2); Carbon Dioxide 28 mmol/L (22-32); Chloride 103 mmol/L (98-107); Cholesterol 129 mg/dL (140-199); Estimated Glomerular Filt Rate > 60.0 mL/min (>60); Glucose 107 mg/dL (80-110); HDL Cholesterol 55 mg/dL (40-60); HEMOLYSIS < 15 (0-50); LDL Cholesterol Calculated 57 mg/dL (<100); Potassium 4.6 mmol/L (3.4-5.1); Sodium 140 mmol/L (137-145); Triglycerides 85 mg/dL (35-150)
== END ==
PROVIDERS: Family Provider Family Medicine; PCP Student in an Organized Health Care Education/Training Program; Referring Provider Internal Medicine Cardiovascular Disease; Visit Provider Internal Medicine Cardiovascular Disease
DX: I25.10 Atherosclerotic heart disease of native coronary artery without angina pectoris (principal); E78.5 Hyperlipidemia, unspecified
CPT/HCPCS: 36415; 80048; 80061; 85025

== ENCOUNTER → 2019-04-09 13:44 | Outpatient (CLI) | payer MEDICARE, OTHER, SELFPAY ==
[2019-02-11 20:45] VITALS: BMI 32.3
== END ==
PROVIDERS: Family Provider Family Medicine; PCP Student in an Organized Health Care Education/Training Program; Referring Provider Student in an Organized Health Care Education/Training Program; Visit Provider Family Medicine
DX: I87.2 Venous insufficiency (chronic) (peripheral) (principal); L97.211 Non-pressure chronic ulcer of right calf limited to breakdown of skin; I70.232 Atherosclerosis of native arteries of right leg with ulceration of calf; E11.622 Type 2 diabetes mellitus with other skin ulcer; Z72.0 Tobacco use; D72.829 Elevated white blood cell count, unspecified; D47.3 Essential (hemorrhagic) thrombocythemia; D64.9 Anemia, unspecified
CPT/HCPCS: 11042; 11045

== ENCOUNTER → 2019-04-16 15:50 | Outpatient (CLI) | payer MEDICARE, OTHER, SELFPAY ==
[2019-02-11 20:45] VITALS: BMI 32.3
== END ==
PROVIDERS: Family Provider Family Medicine; PCP Student in an Organized Health Care Education/Training Program; Referring Provider Student in an Organized Health Care Education/Training Program; Visit Provider Family Medicine
DX: I87.2 Venous insufficiency (chronic) (peripheral) (principal); L97.211 Non-pressure chronic ulcer of right calf limited to breakdown of skin; Z72.0 Tobacco use; D72.829 Elevated white blood cell count, unspecified; D64.9 Anemia, unspecified; E11.51 Type 2 diabetes mellitus with diabetic peripheral angiopathy without gangrene
CPT/HCPCS: 15271; 15272; Q4132

== ENCOUNTER → 2019-04-23 13:00 | Outpatient (CLI) | payer MEDICARE, OTHER, SELFPAY ==
[2019-02-11 20:45] VITALS: BMI 32.3
== END ==
PROVIDERS: Family Provider Family Medicine; PCP Student in an Organized Health Care Education/Training Program; Referring Provider Nurse Practitioner; Visit Provider Family Medicine
DX: I87.2 Venous insufficiency (chronic) (peripheral) (principal); L97.811 Non-pressure chronic ulcer of other part of right lower leg limited to breakdown of skin; R60.0 Localized edema; E11.51 Type 2 diabetes mellitus with diabetic peripheral angiopathy without gangrene
CPT/HCPCS: 11042; 11045

== ENCOUNTER → 2019-04-30 13:09 | Outpatient (CLI) | payer MEDICARE, OTHER, SELFPAY ==
[2019-02-11 20:45] VITALS: BMI 32.3
== END ==
PROVIDERS: Family Provider Family Medicine; PCP Student in an Organized Health Care Education/Training Program; Referring Provider Student in an Organized Health Care Education/Training Program; Visit Provider Family Medicine
DX: I87.2 Venous insufficiency (chronic) (peripheral) (principal); E11.622 Type 2 diabetes mellitus with other skin ulcer; L97.811 Non-pressure chronic ulcer of other part of right lower leg limited to breakdown of skin; E11.51 Type 2 diabetes mellitus with diabetic peripheral angiopathy without gangrene
CPT/HCPCS: 15271; Q4132

== ENCOUNTER → 2019-05-06 13:14 | Outpatient (CLI) | payer MEDICARE, OTHER, SELFPAY ==
[2019-02-11 20:45] VITALS: BMI 32.3
== END ==
PROVIDERS: Family Provider Family Medicine; PCP Student in an Organized Health Care Education/Training Program; Referring Provider Student in an Organized Health Care Education/Training Program; Visit Provider Family Medicine
DX: I87.2 Venous insufficiency (chronic) (peripheral) (principal); L97.811 Non-pressure chronic ulcer of other part of right lower leg limited to breakdown of skin; E11.51 Type 2 diabetes mellitus with diabetic peripheral angiopathy without gangrene
CPT/HCPCS: 15271; Q4132

== ENCOUNTER → 2019-05-08 14:34 | Outpatient (CLI) | payer MEDICARE, OTHER, SELFPAY ==
[2019-02-11 20:45] VITALS: BMI 32.3
--- NOTE | 2019-05-08 14:37 | DI.ECHO.S_ITS ---
[place] +---------+ Hospital +---------+ : : [address] : : : : [id number] : : : : Phone: [phone] Echocardiogram Report + + :Name: LION BEAULIEU Study Date: 05/08/2019 Height: 60 in : :[facility] Weight: 159 lb : : Gender: Female BSA: 1.7 m2 : :: 1940 Age: 78 yrs BP: 142/82 mmHg: :Reason For Study: atherosclerotic heart disease : :Ordering Physician: Gary Mac : :Elias Performed By: Sarina Smyth : :Referring: GARY GRIFFIN : + + Interpretation Summary 1) Normal left ventricular size, thickness, wall motion, and systolic function (EF 60-65%). 2) Normal right ventricular size and function. 3) No significant valvular abnormalities. 4) No prior Echo available for comparison. Procedure: A two-dimensional transthoracic echocardiogram with color flow and Doppler was performed. The study quality was technically adequate. There is no prior echocardiogram noted for this patient. The patient was in normal sinus rhythm during the exam. Left Ventricle: The left ventricle is normal in size. The left ventricle is normal in size and wall thickness. The ejection fraction is estimated to be 60-65%. Left ventricular systolic function is normal without focal wall motion abnormalities. Right Ventricle: The right ventricle is normal in size and function. Atria: Both atria are normal in size. There is no Doppler evidence for an interatrial shunt. Mitral Valve: The mitral valve is normal in structure and function. There is trace mitral regurgitation. Aortic Valve: The aortic valve is trileaflet. The aortic valve opens well. There is no aortic valve stenosis. No aortic regurgitation is present. Tricuspid Valve: The tricuspid valve is normal in structure and function. There is a trace or physiologic amount of tricuspid regurgitation. Pulmonary artery pressures cannot be estimated because of the lack of a measurable TR jet velocity but the IVC suggests a CVP of around 3 mmHg. Pulmonic Valve: The pulmonic valve is not well seen, but is grossly normal. There is no pulmonic valvular regurgitation. Great Vessels: The aortic root is normal size. The IVC is of normal diameter and collapses greater than 50% with a sniff. This suggests a low right atrial pressure of 3 mm Hg. Pericardium/ Pleura Physiological pericardial effusion. There is no pleural effusion. MMode/2D Measurements & Calculations LVIDd: 4.4 cm LVOT diam: 2.0 cm LVIDs: 2.6 cm Ao root diam: 2.7 cm FS: 39.8 % EPSS: 0.89 cm IVSd: 0.92 cm LVPWd: 0.99 cm LV donato. diameter/BSA (cm/m^2): 2.6 LV sys. diameter/BSA (cm/m^2): 1.6 LA A2 area: 17.7 cm2 RA long axis: 5.1 cm LA A4 area: 17.1 cm2 RA area: 16.0 cm2 LA length (vol): 5.6 cm RA vol: 42.5 ml LA vol: 45.8 ml RA : 25.1 ml/m2 LA vol index: 27.0 ml/m2 IVC diam: 1.2 cm RVD1 (basal): 3.5 cm TAPSE: 2.1 cm Doppler Measurements & Calculations Ao V2 max: 164.6 cm/sec LVOT Max Adalberto: 110.0 cm/sec Ao V2 mean: 99.5 cm/sec LV V1 max P.8 mmHg Ao max P.8 mmHg LV V1 VTI: 21.7 cm Ao mean P.8 mmHg JASON(I,D): 2.3 cm2 Ao V2 VTI: 28.9 cm JASON(V,D): 2.0 cm2 sev ratio: 0.75 JASON indexed to BSA (cm^2/m^2): 1.3 MV E max adalberto: 91.3 cm/sec PA V2 max: 126.1 cm/sec MV A max adalberto: 123.0 cm/sec PA V2 mean: 93.5 cm/sec MV E/A: 0.74 PA mean P.8 mmHg Med Peak E' Adalberto: 4.9 cm/sec PA pr(Accel): 41.6 mmHg E/E' med: 18.5 PA Accel Time: 0.08 sec Lat Peak E' Adalberto: 6.9 cm/sec E/E' lat: 13.1 E/e' average: 15.8 MV dec time: 0.19 sec MV P1/2t: 55.5 msec MV P1/2t max adalberto: 92.1 cm/sec SV(LVOT): 65.8 ml MVA(P1/2t): 4.0 cm2 Reading Physician:05:39 PM
== END ==
PROVIDERS: Family Provider Family Medicine; PCP Student in an Organized Health Care Education/Training Program; Referring Provider Internal Medicine Cardiovascular Disease; Visit Provider Internal Medicine Cardiovascular Disease
DX: I25.10 Atherosclerotic heart disease of native coronary artery without angina pectoris (principal); I31.3 Pericardial effusion (noninflammatory)
CPT/HCPCS: 93306

== ENCOUNTER → 2019-05-15 15:27 | Outpatient (CLI) | payer MEDICARE, OTHER, SELFPAY ==
[2019-02-11 20:45] VITALS: BMI 32.3
--- NOTE | 2019-05-15 | DI.MRI.S_ITS ---
PROCEDURE: MR LUMBAR SPINE WO CON INDICATIONS: Spondylosis without myelopathy or radiculopathy TECHNIQUE: Noncontrast sagittal T1 spin echo and T2 fast echo, sagittal STIR, axial T1 and T2 fast spin echo through the lumbar spine. In cases with scoliosis, additional coronal T2 fast spin echo may be performed. COMPARISON: [facility], CT, CT ANGIO ABDOMEN/FEMORAL, 10/23/2018, 13:19. FINDINGS: Image quality: This examination is limited by involuntary motion artifact. Alignment and Curvature: Mild levoconvex scoliotic curvature is noted. Minimal retrolisthesis is seen at the L2-L3 level. Bone Marrow: Marrow is of normal overall signal. No acute vertebral body compression fractures. Spinal Cord: Conus medullaris terminates at the L1 level. Visualized cord demonstrates normal signal and size. Paraspinous Soft Tissues: No paravertebral masses. The patient's known pancreatic masses are not definitely seen. T12-L1: No significant abnormality is seen. L1-L2: Moderate loss of disc height is seen. Loss of disc signal is seen. Moderate generalized disc bulge is seen. Moderate to prominent right-sided and moderate left-sided facet hypertrophy is seen. There is at least moderate right-sided neural foraminal narrowing. Moderate left-sided neural foraminal narrowing is seen. Mild to moderate central canal narrowing is seen. L2-L3: Moderate loss of disc height is seen. Loss of disc signal is seen. Moderate generalized disc bulge is seen is seen, which is eccentric to the right side. There is a central disc protrusion. There is moderate to prominent right-sided and moderate left-sided facet hypertrophy seen. There is moderate left-sided and moderate to severe right-sided neural foraminal narrowing seen. There is a degree of compression seen upon the exiting nerve roots, right worse than left. Severe central canal narrowing is seen, as on series 6 image 18. L3-L4: Mild to moderate loss of disc height and disc signal can be seen. At least moderate disc bulge is seen. A central disc protrusion is seen. Moderate facet hypertrophy is seen. There is moderate to severe bilateral neural foraminal narrowing seen, left worse than right. Severe central canal narrowing is seen, as on series 6 image 22. L4-L5: Mild loss of disc height is seen. Loss of disc signal is seen. At least moderate disc bulge is seen. There is a central/left disc extrusion, with superior migration of disc material. Moderate to prominent facet hypertrophy is seen. Moderate to severe bilateral neural foraminal narrowing is seen, left worse than right. There is a degree of compression seen upon the exiting nerve roots. Moderate to severe central canal narrowing is seen. L5-S1: Minimal loss of disc height is seen. Loss of disc signal is seen. [id number] disc bulge is seen. There is a disc extrusion seen on the left, with superior migration of disc material. Moderate to prominent facet hypertrophy is seen. There is at least moderate right-sided and moderate to severe left-sided neural foraminal narrowing seen, with associated compression upon the exiting left L5 nerve root. Mild to moderate central canal narrowing is seen. IMPRESSION: Multiple levels of prominent lumbar spine degenerative change are seen, including disc extrusions at L4-L5 and L5-S1. Moderate to severe neural foraminal narrowing can be seen on the right at L2-L3, bilaterally at L3-L4, bilaterally at L4-L5, and on the left L5-S1. There is severe central canal narrowing at L2-L3 and at L3-L4, with moderate to severe central canal narrowing at L4-L5. Dictated by: Jonathan King M.D. on 05/15/2019 at 15:34 Approved by: Jonathan King M.D. on 05/15/2019 at 15:43
== END ==
PROVIDERS: Family Provider Family Medicine; PCP Student in an Organized Health Care Education/Training Program; Referring Provider Acupuncturist; Visit Provider Acupuncturist
DX: M47.816 Spondylosis without myelopathy or radiculopathy, lumbar region (principal); M47.817 Spondylosis without myelopathy or radiculopathy, lumbosacral region; M51.26 Other intervertebral disc displacement, lumbar region; M51.27 Other intervertebral disc displacement, lumbosacral region; M48.061 Spinal stenosis, lumbar region without neurogenic claudication; M48.07 Spinal stenosis, lumbosacral region
CPT/HCPCS: 72148

== ENCOUNTER → 2019-05-19 13:18 | Outpatient (CLI) | payer MEDICARE, OTHER, SELFPAY ==
[2019-02-11 20:45] VITALS: BMI 32.3
== END ==
PROVIDERS: Family Provider Family Medicine; PCP Student in an Organized Health Care Education/Training Program; Referring Provider Student in an Organized Health Care Education/Training Program; Visit Provider Family Medicine
DX: I87.2 Venous insufficiency (chronic) (peripheral) (principal); L97.211 Non-pressure chronic ulcer of right calf limited to breakdown of skin; Z72.0 Tobacco use; E11.51 Type 2 diabetes mellitus with diabetic peripheral angiopathy without gangrene
CPT/HCPCS: 15271; 29581; Q4132

== ENCOUNTER → 2019-05-26 13:20 | Outpatient (CLI) | payer MEDICARE, OTHER, SELFPAY ==
[2019-02-11 20:45] VITALS: BMI 32.3
== END ==
LOC: WC 13:21
PROVIDERS: Family Provider Family Medicine; PCP Student in an Organized Health Care Education/Training Program; Referring Provider Student in an Organized Health Care Education/Training Program; Visit Provider Family Medicine
DX: I87.2 Venous insufficiency (chronic) (peripheral) (principal); L97.211 Non-pressure chronic ulcer of right calf limited to breakdown of skin; E11.51 Type 2 diabetes mellitus with diabetic peripheral angiopathy without gangrene; R60.0 Localized edema; Z72.0 Tobacco use
CPT/HCPCS: 15271; Q4132

== ENCOUNTER → 2019-06-02 15:18 | Outpatient (CLI) | payer MEDICARE, OTHER, SELFPAY ==
[2019-02-11 20:45] VITALS: BMI 32.3
== END ==
PROVIDERS: Family Provider Family Medicine; PCP Student in an Organized Health Care Education/Training Program; Referring Provider Student in an Organized Health Care Education/Training Program; Visit Provider Family Medicine
DX: I87.2 Venous insufficiency (chronic) (peripheral) (principal); L97.811 Non-pressure chronic ulcer of other part of right lower leg limited to breakdown of skin; E11.622 Type 2 diabetes mellitus with other skin ulcer; E11.51 Type 2 diabetes mellitus with diabetic peripheral angiopathy without gangrene
CPT/HCPCS: 97597

== ENCOUNTER → 2019-06-10 14:06 | Outpatient (CLI) | payer MEDICARE, OTHER, SELFPAY ==
[2019-02-11 20:45] VITALS: BMI 32.3
== END ==
PROVIDERS: Family Provider Family Medicine; PCP Student in an Organized Health Care Education/Training Program; Referring Provider Student in an Organized Health Care Education/Training Program; Visit Provider Family Medicine
DX: I87.2 Venous insufficiency (chronic) (peripheral) (principal); L97.211 Non-pressure chronic ulcer of right calf limited to breakdown of skin; E11.51 Type 2 diabetes mellitus with diabetic peripheral angiopathy without gangrene; R60.0 Localized edema; Z72.0 Tobacco use
CPT/HCPCS: 15271; Q4132

== ENCOUNTER → 2019-06-17 15:54 | Outpatient (CLI) | payer MEDICARE, OTHER, SELFPAY ==
[2019-02-11 20:45] VITALS: BMI 32.3
== END ==
PROVIDERS: Family Provider Family Medicine; PCP Student in an Organized Health Care Education/Training Program; Referring Provider Student in an Organized Health Care Education/Training Program; Visit Provider Family Medicine
DX: I87.2 Venous insufficiency (chronic) (peripheral) (principal); L97.211 Non-pressure chronic ulcer of right calf limited to breakdown of skin; Z72.0 Tobacco use; E11.51 Type 2 diabetes mellitus with diabetic peripheral angiopathy without gangrene
CPT/HCPCS: 15271; Q4132

== ENCOUNTER → 2019-06-23 15:21 | Outpatient (CLI) | payer MEDICARE, OTHER, SELFPAY ==
[2019-02-11 20:45] VITALS: BMI 32.3
== END ==
PROVIDERS: Family Provider Family Medicine; PCP Student in an Organized Health Care Education/Training Program; Referring Provider Student in an Organized Health Care Education/Training Program; Visit Provider Family Medicine
DX: I87.2 Venous insufficiency (chronic) (peripheral) (principal); L97.811 Non-pressure chronic ulcer of other part of right lower leg limited to breakdown of skin
CPT/HCPCS: 15271; Q4132

== ENCOUNTER → 2019-07-08 14:32 | Outpatient (CLI) | payer MEDICARE, OTHER, SELFPAY ==
[2019-02-11 20:45] VITALS: BMI 32.3
== END ==
PROVIDERS: Family Provider Family Medicine; PCP Student in an Organized Health Care Education/Training Program; Referring Provider Student in an Organized Health Care Education/Training Program; Visit Provider Family Medicine
DX: I87.2 Venous insufficiency (chronic) (peripheral) (principal); L97.811 Non-pressure chronic ulcer of other part of right lower leg limited to breakdown of skin; E11.51 Type 2 diabetes mellitus with diabetic peripheral angiopathy without gangrene
CPT/HCPCS: 15271; Q4132

== ENCOUNTER → 2019-07-15 16:41 | Outpatient (CLI) | payer MEDICARE, OTHER, SELFPAY ==
[2019-02-11 20:45] VITALS: BMI 32.3
== END ==
PROVIDERS: Family Provider Family Medicine; PCP Student in an Organized Health Care Education/Training Program; Referring Provider Student in an Organized Health Care Education/Training Program; Visit Provider Family Medicine
DX: I87.2 Venous insufficiency (chronic) (peripheral) (principal); E11.622 Type 2 diabetes mellitus with other skin ulcer; L97.811 Non-pressure chronic ulcer of other part of right lower leg limited to breakdown of skin; E11.51 Type 2 diabetes mellitus with diabetic peripheral angiopathy without gangrene
CPT/HCPCS: 97597

== ENCOUNTER → 2019-07-22 14:32 | Outpatient (CLI) | payer MEDICARE, OTHER, SELFPAY ==
[2019-02-11 20:45] VITALS: BMI 32.3
== END ==
PROVIDERS: Family Provider Family Medicine; PCP Student in an Organized Health Care Education/Training Program; Referring Provider Student in an Organized Health Care Education/Training Program; Visit Provider Family Medicine
DX: I87.2 Venous insufficiency (chronic) (peripheral) (principal); E11.621 Type 2 diabetes mellitus with foot ulcer; L97.811 Non-pressure chronic ulcer of other part of right lower leg limited to breakdown of skin; E11.51 Type 2 diabetes mellitus with diabetic peripheral angiopathy without gangrene; L03.115 Cellulitis of right lower limb; R60.0 Localized edema; Z72.0 Tobacco use
CPT/HCPCS: 87070; 87075; 87077; 87186; 87205; 97597; 99213; 99214

== ENCOUNTER → 2019-07-29 14:10 | Outpatient (CLI) | payer MEDICARE, OTHER, SELFPAY ==
[2019-02-11 20:45] VITALS: BMI 32.3
== END ==
PROVIDERS: Family Provider Family Medicine; PCP Student in an Organized Health Care Education/Training Program; Referring Provider Student in an Organized Health Care Education/Training Program; Visit Provider Family Medicine
DX: I87.2 Venous insufficiency (chronic) (peripheral) (principal); E11.622 Type 2 diabetes mellitus with other skin ulcer; L97.211 Non-pressure chronic ulcer of right calf limited to breakdown of skin; E11.51 Type 2 diabetes mellitus with diabetic peripheral angiopathy without gangrene; B95.7 Other staphylococcus as the cause of diseases classified elsewhere; L08.9 Local infection of the skin and subcutaneous tissue, unspecified
CPT/HCPCS: 11042; 99213

== ENCOUNTER → 2019-08-05 13:51 | Outpatient (CLI) | payer MEDICARE, OTHER, SELFPAY ==
[2019-02-11 20:45] VITALS: BMI 32.3
== END ==
PROVIDERS: Family Provider Family Medicine; PCP Student in an Organized Health Care Education/Training Program; Referring Provider Student in an Organized Health Care Education/Training Program; Visit Provider Family Medicine
DX: I87.2 Venous insufficiency (chronic) (peripheral) (principal); L97.211 Non-pressure chronic ulcer of right calf limited to breakdown of skin; Z75.0 Medical services not available in home; E11.51 Type 2 diabetes mellitus with diabetic peripheral angiopathy without gangrene
CPT/HCPCS: 97597

== ENCOUNTER → 2019-08-12 15:33 | Outpatient (CLI) | payer MEDICARE, OTHER, SELFPAY ==
[2019-02-11 20:45] VITALS: BMI 32.3
== END ==
PROVIDERS: Family Provider Family Medicine; PCP Student in an Organized Health Care Education/Training Program; Referring Provider Student in an Organized Health Care Education/Training Program; Visit Provider Family Medicine
DX: I87.2 Venous insufficiency (chronic) (peripheral) (principal); L97.211 Non-pressure chronic ulcer of right calf limited to breakdown of skin; Z72.0 Tobacco use; E11.51 Type 2 diabetes mellitus with diabetic peripheral angiopathy without gangrene
CPT/HCPCS: 15271; Q4132

== ENCOUNTER → 2019-08-19 13:40 | Outpatient (CLI) | payer MEDICARE, OTHER, SELFPAY ==
[2019-02-11 20:45] VITALS: BMI 32.3
== END ==
PROVIDERS: Family Provider Family Medicine; PCP Student in an Organized Health Care Education/Training Program; Referring Provider Student in an Organized Health Care Education/Training Program; Visit Provider Family Medicine
DX: E11.51 Type 2 diabetes mellitus with diabetic peripheral angiopathy without gangrene (principal); L97.211 Non-pressure chronic ulcer of right calf limited to breakdown of skin; I87.2 Venous insufficiency (chronic) (peripheral); Z72.0 Tobacco use
CPT/HCPCS: 93923; 97597; 99214

== ENCOUNTER → 2019-08-26 15:26 | Outpatient (CLI) | payer MEDICARE, OTHER, SELFPAY ==
[2019-02-11 20:45] VITALS: BMI 32.3
== END ==
PROVIDERS: Family Provider Family Medicine; PCP Student in an Organized Health Care Education/Training Program; Referring Provider Student in an Organized Health Care Education/Training Program; Visit Provider Family Medicine
DX: E11.51 Type 2 diabetes mellitus with diabetic peripheral angiopathy without gangrene (principal); L97.211 Non-pressure chronic ulcer of right calf limited to breakdown of skin; I87.2 Venous insufficiency (chronic) (peripheral); Z72.0 Tobacco use
CPT/HCPCS: 99212; 99213

== ENCOUNTER → 2019-09-09 14:59 | Outpatient (CLI) | payer MEDICARE, OTHER, SELFPAY ==
[2019-02-11 20:45] VITALS: BMI 32.3
== END ==
PROVIDERS: Family Provider Family Medicine; PCP Student in an Organized Health Care Education/Training Program; Referring Provider Student in an Organized Health Care Education/Training Program; Visit Provider Family Medicine
DX: I70.238 Atherosclerosis of native arteries of right leg with ulceration of other part of lower leg (principal)
CPT/HCPCS: 99213

== ENCOUNTER → 2019-09-23 14:05 | Outpatient (CLI) | payer MEDICARE, OTHER, SELFPAY ==
[2019-02-11 20:45] VITALS: BMI 32.3
== END ==
PROVIDERS: Family Provider Family Medicine; PCP Student in an Organized Health Care Education/Training Program; Referring Provider Student in an Organized Health Care Education/Training Program; Visit Provider Family Medicine
DX: I70.238 Atherosclerosis of native arteries of right leg with ulceration of other part of lower leg (principal)
CPT/HCPCS: 99213

== ENCOUNTER → 2019-09-30 15:10 | Outpatient (CLI) | payer MEDICARE, OTHER, SELFPAY ==
[2019-02-11 20:45] VITALS: BMI 32.3
== END ==
PROVIDERS: Family Provider Family Medicine; PCP Student in an Organized Health Care Education/Training Program; Referring Provider Student in an Organized Health Care Education/Training Program; Visit Provider Family Medicine
DX: E11.51 Type 2 diabetes mellitus with diabetic peripheral angiopathy without gangrene (principal); L97.211 Non-pressure chronic ulcer of right calf limited to breakdown of skin; I87.2 Venous insufficiency (chronic) (peripheral); Z72.0 Tobacco use
CPT/HCPCS: 11042; 99212

== ENCOUNTER → 2019-10-02 13:51 | Outpatient (CLI) | payer MEDICARE, OTHER, SELFPAY ==
[2019-02-11 20:45] VITALS: BMI 32.3
== END ==
PROVIDERS: Family Provider Family Medicine; PCP Student in an Organized Health Care Education/Training Program; Referring Provider Student in an Organized Health Care Education/Training Program; Visit Provider Family Medicine
DX: I70.238 Atherosclerosis of native arteries of right leg with ulceration of other part of lower leg (principal)
CPT/HCPCS: 29581

== ENCOUNTER → 2019-10-08 15:33 | Outpatient (CLI) | payer MEDICARE, OTHER, SELFPAY ==
[2019-02-11 20:45] VITALS: BMI 32.3
== END ==
PROVIDERS: Family Provider Family Medicine; PCP Student in an Organized Health Care Education/Training Program; Referring Provider Student in an Organized Health Care Education/Training Program; Visit Provider Family Medicine
DX: E11.51 Type 2 diabetes mellitus with diabetic peripheral angiopathy without gangrene (principal); L97.211 Non-pressure chronic ulcer of right calf limited to breakdown of skin; I87.2 Venous insufficiency (chronic) (peripheral); Z72.0 Tobacco use
CPT/HCPCS: 97597

== ENCOUNTER → 2019-10-15 15:29 | Outpatient (CLI) | payer MEDICARE, OTHER, SELFPAY ==
[2019-02-11 20:45] VITALS: BMI 32.3
== END ==
PROVIDERS: Family Provider Family Medicine; PCP Student in an Organized Health Care Education/Training Program; Referring Provider Student in an Organized Health Care Education/Training Program; Visit Provider Family Medicine
DX: E11.51 Type 2 diabetes mellitus with diabetic peripheral angiopathy without gangrene (principal); L97.211 Non-pressure chronic ulcer of right calf limited to breakdown of skin; I87.2 Venous insufficiency (chronic) (peripheral); Z72.0 Tobacco use
CPT/HCPCS: 15271; Q4137

== ENCOUNTER → 2019-10-22 16:14 | Outpatient (CLI) | payer MEDICARE, OTHER, SELFPAY ==
[2019-02-11 20:45] VITALS: BMI 32.3
== END ==
PROVIDERS: Family Provider Family Medicine; PCP Student in an Organized Health Care Education/Training Program; Referring Provider Student in an Organized Health Care Education/Training Program; Visit Provider Family Medicine
DX: E11.51 Type 2 diabetes mellitus with diabetic peripheral angiopathy without gangrene (principal); L97.211 Non-pressure chronic ulcer of right calf limited to breakdown of skin; I87.2 Venous insufficiency (chronic) (peripheral); Z72.0 Tobacco use
CPT/HCPCS: 15271; Q4137

== ENCOUNTER → 2019-10-29 15:10 | Outpatient (CLI) | payer MEDICARE, OTHER, SELFPAY ==
[2019-02-11 20:45] VITALS: BMI 32.3
== END ==
PROVIDERS: Family Provider Family Medicine; PCP Student in an Organized Health Care Education/Training Program; Referring Provider Student in an Organized Health Care Education/Training Program; Visit Provider Family Medicine
DX: E11.51 Type 2 diabetes mellitus with diabetic peripheral angiopathy without gangrene (principal); L97.211 Non-pressure chronic ulcer of right calf limited to breakdown of skin; I87.2 Venous insufficiency (chronic) (peripheral); Z72.0 Tobacco use; I70.238 Atherosclerosis of native arteries of right leg with ulceration of other part of lower leg
CPT/HCPCS: 15271; 99212; Q4137

== ENCOUNTER → 2019-11-05 15:19 | Outpatient (CLI) | payer MEDICARE, OTHER, SELFPAY ==
[2019-02-11 20:45] VITALS: BMI 32.3
== END ==
PROVIDERS: Family Provider Family Medicine; PCP Student in an Organized Health Care Education/Training Program; Referring Provider Student in an Organized Health Care Education/Training Program; Visit Provider Family Medicine
DX: I87.2 Venous insufficiency (chronic) (peripheral) (principal); L97.211 Non-pressure chronic ulcer of right calf limited to breakdown of skin; E11.51 Type 2 diabetes mellitus with diabetic peripheral angiopathy without gangrene; Z72.0 Tobacco use
CPT/HCPCS: 15271; Q4137

== ENCOUNTER → 2019-11-11 14:40 | Outpatient (CLI) | payer MEDICARE, OTHER, SELFPAY ==
[2019-02-11 20:45] VITALS: BMI 32.3
== END ==
PROVIDERS: Family Provider Family Medicine; PCP Student in an Organized Health Care Education/Training Program; Referring Provider Student in an Organized Health Care Education/Training Program; Visit Provider Family Medicine
DX: R60.9 Edema, unspecified (principal)
CPT/HCPCS: 99213

== ENCOUNTER → 2019-11-18 15:07 | Outpatient (CLI) | payer MEDICARE, OTHER, SELFPAY ==
[2019-02-11 20:45] VITALS: BMI 32.3
== END ==
PROVIDERS: Family Provider Family Medicine; PCP Student in an Organized Health Care Education/Training Program; Referring Provider Student in an Organized Health Care Education/Training Program; Visit Provider Family Medicine
DX: I87.2 Venous insufficiency (chronic) (peripheral) (principal); L97.211 Non-pressure chronic ulcer of right calf limited to breakdown of skin; E11.51 Type 2 diabetes mellitus with diabetic peripheral angiopathy without gangrene; Z72.0 Tobacco use
CPT/HCPCS: 15271; 99213; Q4137

== ENCOUNTER → 2019-11-25 15:11 | Outpatient (CLI) | payer MEDICARE, OTHER, SELFPAY ==
[2019-02-11 20:45] VITALS: BMI 32.3
== END ==
PROVIDERS: Family Provider Family Medicine; PCP Student in an Organized Health Care Education/Training Program; Referring Provider Student in an Organized Health Care Education/Training Program; Visit Provider Family Medicine
DX: I87.2 Venous insufficiency (chronic) (peripheral) (principal); L97.211 Non-pressure chronic ulcer of right calf limited to breakdown of skin; E11.51 Type 2 diabetes mellitus with diabetic peripheral angiopathy without gangrene; Z72.0 Tobacco use
CPT/HCPCS: 97597

== ENCOUNTER → 2019-12-02 15:46 | Outpatient (CLI) | payer MEDICARE, OTHER, SELFPAY ==
[2019-02-11 20:45] VITALS: BMI 32.3
== END ==
PROVIDERS: Family Provider Family Medicine; PCP Student in an Organized Health Care Education/Training Program; Referring Provider Student in an Organized Health Care Education/Training Program; Visit Provider Family Medicine
DX: I87.2 Venous insufficiency (chronic) (peripheral) (principal); L97.211 Non-pressure chronic ulcer of right calf limited to breakdown of skin
CPT/HCPCS: 29581

== ENCOUNTER → 2019-12-09 16:01 | Outpatient (CLI) | payer MEDICARE, OTHER, SELFPAY ==
[2019-02-11 20:45] VITALS: BMI 32.3
== END ==
PROVIDERS: Family Provider Family Medicine; PCP Student in an Organized Health Care Education/Training Program; Referring Provider Student in an Organized Health Care Education/Training Program; Visit Provider Family Medicine
DX: I87.2 Venous insufficiency (chronic) (peripheral) (principal); E11.51 Type 2 diabetes mellitus with diabetic peripheral angiopathy without gangrene; Z72.0 Tobacco use; R60.0 Localized edema
CPT/HCPCS: 99212; 99213